=== PATIENT | male | born 1995 | race Caucasian/White ===

== ENCOUNTER 2017-05-03 01:51 | Emergency (ER) | payer SELFPAY ==
[~2017-05-03] VITALS: Ht 182.9 cm; Wt 77.1 kg
--- NOTE | 2017-05-03 01:53 | PHYS DOC ---
Past Medical History Procedural Sedation Proc Sed Indication: Left shoulder dislocation Consent: I have discussed with the patient and/or the patient district sales representative the indication, alternatives, and the possible risks and /or complications of the planned procedure and the anesthesia methods. The patient and/or patient district sales representative appear to understand and agree to proceed. Pre-Sedation Documentation and Exam: As above Airway Assessment: normal. Prior History of Anesthesia Complications: none. ASA Classification: 1 Sedation/ Anesthesia Plan: Propofol Medications Used: see nursing notes. Monitoring and Safety: The patient was placed on a lunchroom monitor and vital signs, pulse oximetry and level of consciousness were continuously evaluated throughout the procedure. The patient was closely monitored until recovery from the medications was complete and the patient had returned to baseline status. Respiratory therapy was on standby at all times during the procedure. (The following sections must be completed) Post-Sedation Vital Signs: Refer to vital sheet Post-Sedation Exam: Alert and oriented 3 in no acute distress Complications: none. Vital Signs Vital Signs Date Time Temp Pulse Resp B/P (MAP) Pulse Ox O2 Delivery O2 Flow Rate FiO2 05/03/17 05:18 100 19 160/93 (115) 100 Room Air 05/03/17 03:28 98.3 Adult General Chief Complaint Chief Complaint: SHOULDER INJURY HPI HPI Patient is a 21 year old who presents with shoulder pain. He states he was asleep and woke up started having pain in his left shoulder. He states he 's never had a dislocation before. 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 He denies any other past medical history. He denies any allergies to medications Review of Systems Review of Systems Constitutional: Denies fever or chills [] Eyes: Denies change in visual acuity, redness, or eye pain [] HENT: Denies nasal congestion or sore throat [] Respiratory: Denies cough or shortness of breath [] Cardiovascular: No additional information not addressed in HPI [] GI: Denies abdominal pain, nausea, vomiting, bloody stools or diarrhea [] : Denies dysuria or hematuria [] Musculoskeletal: Denies back pain or joint pain [] Integument: Denies rash or skin lesions [] Neurologic: Denies headache, focal weakness or sensory changes [] Endocrine: Denies polyuria or polydipsia [] Current Medications Current Medications Current Medications Medications (Trade) Dose Ordered Sig/Nguyen Start Time Stop Time Status Last Admin Dose Admin Fentanyl Citrate (Fentanyl 2ml Vial) 100 mcg STK-MED ONCE 05/03/17 02:11 05/03/17 02:12 DC Propofol 20 ml @ 0 mls/hr 1X ONCE 05/03/17 02:45 05/03/17 02:47 DC 05/03/17 03:50 0 MLS/HR Sodium Chloride 1,000 ml @ 1,000 mls/hr 1X ONCE 05/03/17 05:00 05/03/17 05:45 DC 05/03/17 05:00 1,000 MLS/HR Allergies Allergies Allergies Coded Allergies Type Severity Reaction Last Updated Verified No Known Drug Allergies 05/03/17 No Physical Exam Physical Exam Constitutional: Well developed, well nourished, no acute distress, non-toxic appearance. [] HENT: Normocephalic, atraumatic, bilateral external ears normal, oropharynx moist, no oral exudates, nose normal. [] Eyes: PERRLA, EOMI, conjunctiva normal, no discharge. [] Neck: Normal range of motion, no tenderness, supple, no stridor. [] Cardiovascular:Heart rate regular rhythm, no murmur [] Lungs & Thorax: Bilateral breath sounds clear to auscultation [] Abdomen: Bowel sounds normal, soft, no tenderness, no masses, no pulsatile masses. [] Skin: Warm, dry, no erythema, no rash. [] Back: No tenderness, no CVA tenderness. [] Extremities: Tender palpation over the left shoulder with an obvious deformity over the shoulder no cyanosis, no clubbing, no edema. [] Neurologic: Alert and oriented X 3, normal motor function, normal sensory function, no focal deficits noted. [] Psychologic: Affect normal, judgement normal, mood normal. [] Current Patient Data Vital Signs Vital Signs Date Time Temp Pulse Resp B/P (MAP) Pulse Ox O2 Delivery O2 Flow Rate FiO2 05/03/17 05:18 100 19 160/93 (115) 100 Room Air 05/03/17 03:28 98.3 Lab Values Laboratory Tests Test 05/03/17 02:03 05/03/17 03:15 05/03/17 05:00 White Blood Count 17.6 x10^3/uL (4.0-11.0) H Red Blood Count 5.62 x10^6/uL (4.30-5.70) Hemoglobin 15.4 g/dL (13.0-17.5) Hematocrit 45.2 % (39.0-53.0) Mean Corpuscular Volume 81 fL (79-100) Mean Corpuscular Hemoglobin 27 pg (25-35) Mean Corpuscular Hemoglobin Concent 34 g/dL (31-37) Red Cell Distribution Width 13.6 % (11.5-14.5) Platelet Count 339 x10^3/uL (140-400) Neutrophils (%) (Auto) 81 % (31-73) H Lymphocytes (%) (Auto) 11 % (24-48) L Monocytes (%) (Auto) 6 % (0-9) Eosinophils (%) (Auto) 1 % (0-3) Basophils (%) (Auto) 1 % (0-3) Neutrophils # (Auto) 14.3 x10^3uL (1.8-7.7) H Lymphocytes # (Auto) 1.9 x10^3/uL (1.0-4.8) Monocytes # (Auto) 1.1 x10^3/uL (0.0-1.1) Eosinophils # (Auto) 0.2 x10^3/uL (0.0-0.7) Basophils # (Auto) 0.1 x10^3/uL (0.0-0.2) Platelet Estimate Pending Sodium Level 138 mmol/L (136-145) Potassium Level 3.6 mmol/L (3.5-5.1) Chloride Level 100 mmol/L (98-107) Carbon Dioxide Level 24 mmol/L (21-32) Anion Gap 14 (6-14) Blood Urea Nitrogen 11 mg/dL (8-26) Creatinine 1.1 mg/dL (0.7-1.3) Estimated GFR (Cockcroft-Gault) 86.2 BUN/Creatinine Ratio 10 (6-20) Glucose Level 139 mg/dL (70-99) H Calcium Level 9.9 mg/dL (8.5-10.1) Total Bilirubin 0.3 mg/dL (0.2-1.0) Aspartate Amino Transferase (AST) 27 U/L (15-37) Alanine Aminotransferase (ALT) 69 U/L (16-63) H Alkaline Phosphatase 113 U/L (46-116) Creatine Kinase 293 U/L (39-308) Creatine Kinase MB (Mass) 0.9 ng/mL (0.0-3.6) Creatine Kinase MB Relative Index 0.3 % (0-4) Total Protein 8.5 g/dL (6.4-8.2) H Albumin 4.8 g/dL (3.4-5.0) Albumin/Globulin Ratio 1.3 (1.0-1.7) Lactic Acid Level 3.7 mmol/L (0.4-2.0) H Urine Collection Type Unknown Urine Color Yellow Urine Clarity Clear Urine pH 5.5 Urine Specific [place] 1.020 Urine Protein Negative mg/dL (NEG-TRACE) Urine Glucose (UA) Negative mg/dL (NEG) Urine Ketones (Stick) Trace mg/dL (NEG) Urine Blood Negative (NEG) Urine Nitrite Negative (NEG) Urine Bilirubin Negative (NEG) Urine Urobilinogen Dipstick 0.2 mg/dL (0.2 mg/dL) Urine Leukocyte Esterase Negative (NEG) Urine RBC Occ /HPF (0-2) Urine WBC 1-4 /HPF (0-4) Urine Squamous Epithelial Cells Occ /LPF Urine Bacteria 0 /HPF (0-FEW) Urine Hyaline Casts Moderate /HPF Urine Mucus Marked /LPF Urine Opiates Screen Neg (NEG) Urine Methadone Screen Neg (NEG) Urine Barbiturates Neg (NEG) Urine Phencyclidine Screen Neg (NEG) Urine Amphetamine/Methamphetamine Neg (NEG) Urine Benzodiazepines Screen Neg (NEG) Urine Cocaine Screen Neg (NEG) Urine Cannabinoids Screen Neg (NEG) Urine Ethyl Alcohol Neg (NEG) Laboratory Tests 05/03/17 02:03 Laboratory Tests 05/03/17 02:03 EKG EKG [] Radiology/Procedures Radiology/Procedures 2 views of the left shoulder shows anterior shoulder dislocation, no fractures noted, no pneumothorax noted, as interpreted by me. 2 views a post reduction shows normal alignment, no fractures or bony abnormalities, as interpreted by me. Impressions: Shoulder dislocation Course & Med Decision Making Course & Med Decision Making Pertinent Labs and Imaging studies reviewed. (See chart for details) Not sure why shoulders dislocated. He's either not being honest about his activities or perhaps he fell in all night. Shoulder reduction occurred with conscious sedation using propofol. Patient reduction was successful and I do not appreciate any fractures, patient was placed in a shoulder immobilizer . Neurovascularly he is intact with 2+ radial artery in addition to able flex extend at the wrist, fingers, intact to light touch and motor to radial median and ulnar nerve distributions. He has been watched per protocol, his vitals been stable and he is ambulatory and alert and oriented 3. He is stable for discharge. He is to follow-up with Dr. Otero. He's also instructed to follow- up with Dr. Umanzor for possible seizure. An elevated lactic acid and received 2 L of normal saline. Return precautions given his agreeable to the plan and being discharged in stable condition at this time. Dragon Disclaimer Dragon Disclaimer This electronic medical record was generated, in whole or in part, using a voice recognition dictation system. PROCEDURE Procedure Procedure note for left shoulder dislocation. Conscious sedation was used with propofol 70 mg then 35 mg. Patient was on monitor continuously. PCO2 was monitored. Traction countertraction was used. The second attempt shoulder reduction was successful. The patient was placed in an arm immobilizer. Patient tolerated procedure well. No palpitations noted. Departure Departure Impression: Primary Impression: Shoulder dislocation Disposition: 01 HOME, SELF-CARE Condition: STABLE Referrals: JOSEPH OTERO II, MD, JAMES S MD Patient Instructions: Shoulder Dislocation, Shoulder Immobilizer Additional Instructions: You were seen and I for your shoulder being dislocated. Were not sure how this happened but you might of had a seizure. Your shoulder was placed back into place and your being discharged home with a shoulder immobilizer were holds it in place. You will need to follow-up with Dr. Otero. Please see him within the next 2 days. Please call his office and schedule follow-up appointment. Since weren't sure if he had a seizure or not your being referred to a neurologist. Please call Dr. Umanzor's office for follow-up appointment with him. If you develop numbness, weakness, your fingers in your left arm turn blue or you have any other concerns please return back to emergency department immediately. Problem Qualifiers Primary Impression: Shoulder dislocation Encounter type: initial encounter Laterality: left Qualified Codes: S43.005A - Unspecified dislocation of left shoulder joint, initial encounter DIANNA GARLAND MD May 03, 2017 01:53
[2017-05-03] MEDS ORDERED: fentaNYL PF VIAL 100 MCG/2 ML VIAL ONE (02:11)
[2017-05-03] MEDS: fentaNYL PF VIAL 100 MCG/2 ML VIAL IV PRN ×3 (02:12→03:43)
[2017-05-03 02:37] LABS: BASO # 0.1 x10^3/uL (0.0-0.2); BASO % 1 % (0-3); EOS % 1 % (0-3); HEMATOCRIT 45.2 % (39.0-53.0); HEMOGLOBIN 15.4 g/dL (13.0-17.5); LYMPH # 1.9 x10^3/uL (1.0-4.8); LYMPH % 11 % (24-48); MEAN CORPUSCULAR HEMOGLOBIN 27 pg (25-35); MEAN CORPUSCULAR HGB CONC 34 g/dL (31-37); MEAN CORPUSCULAR VOLUME 81 fL (79-100); MONO % 6 % (0-9); NEUT % 81 % (31-73); PLATELET COUNT 339 x10^3/uL (140-400); RED BLOOD COUNT 5.62 x10^6/uL (4.30-5.70); RED CELL DISTRIBUTION WIDTH 13.6 % (11.5-14.5); WHITE BLOOD COUNT 17.6 x10^3/uL (4.0-11.0)
[2017-05-03] MEDS ORDERED: PROPOFOL 20 ML IV ONE (02:45)
[2017-05-03 02:51] LABS: CALCIUM 9.9 mg/dL (8.5-10.1); CREATININE 1.1 mg/dL (0.7-1.3); GFR 86.2; POTASSIUM 3.6 mmol/L (3.5-5.1)
[2017-05-03 02:57] LABS: ALBUMIN 4.8 g/dL (3.4-5.0); ALBUMIN/GLOBULIN RATIO 1.3 (1.0-1.7); TOTAL BILIRUBIN 0.3 mg/dL (0.2-1.0); TOTAL PROTEIN 8.5 g/dL (6.4-8.2)
[2017-05-03 03:03] LABS: CKMB MASS 0.9 ng/mL (0.0-3.6)
[2017-05-03] MEDS ORDERED: IV NORMAL SALINE 1000ML BAG 1,000 ML IV ONE (05:00)
[2017-05-03 05:08] LABS: BILIRUBIN,URINE NEGATIVE (NEG); GLUCOSE,URINE NEGATIVE (NEG); NITRITE,URINE NEGATIVE (NEG); PH,URINE 5.5; PROTEIN,URINE NEGATIVE (NEG-TRACE); UROBILINOGEN,URINE 0.2 mg/dL (0.2 mg/dL)
[2017-05-03 05:14] LABS: BARBITURATES NEG (NEG); BENZODIAZEPINES NEG (NEG); CANNABINOIDS NEG (NEG); COCAINE NEG (NEG); METHADONE NEG (NEG); OPIATES NEG (NEG); PHENCYCLIDINE NEG (NEG)
[2017-05-03 05:18] VITALS: BP 160/93
[2017-05-03 05:21] LABS: BACTERIA,URINE 0 /HPF (0-FEW); RBC,URINE OCC /HPF (0-2); SQUAMOUS EPITHELIAL CELL,UR OCC /LPF
--- NOTE | 2017-05-03 08:25 | RAD ---
Indication post reduction. AP and Y views of the left shoulder were obtained and are compared to an examination 2 hours earlier. In the interval there has been reduction of previously identified anterior dislocation. No definite fracture seen. IMPRESSION: Interval reduction
--- NOTE | 2017-05-03 08:30 | RAD ---
Indication pain. An AP and a suboptimal Y view were obtained. The examination was targeted to the left shoulder. There is an anterior subcoracoid dislocation. There is a suggested fracture off the head of the humerus likely reflecting a Hill-Sachs deformity. IMPRESSION: Anterior dislocation. Probable fracture humeral head
[2017-05-03 09:24] LABS: % EOS 2 % (0-5)
[2017-05-03 09:25] LABS: PLT ESTIMATE ADEQUATE (ADEQUATE)
== END 2017-05-03 05:40 | disposition home or self-care (01) ==
LOC: ER 01:51
DX: S43.005A Unspecified dislocation of left shoulder joint, initial encounter (principal); F84.0 Autistic disorder; X58.XXXA Exposure to other specified factors, initial encounter; Y93.89 Activity, other specified; Y99.8 Other external cause status; Y92.89 Other specified places as the place of occurrence of the external cause
CPT/HCPCS: 23650; 36415; 73030; 80053; 80305; 80320; 81001; 82553; 83605; 85007; 85027; 96374; 96376; 99285; J2704; J3010; J7030; G0481

== ENCOUNTER 2017-11-29 12:56 | Emergency (ER) | payer OTHER ==
[2017-11-29] MEDS: KETOROLAC 60 MG/2 ML INJ. IM ×2 (13:44)
[2017-11-29] MEDS ORDERED: HYDROmorphone 2 MG/ML VIAL ×2 (14:23)
[2017-11-29] MEDS: HYDROmorphone 2 MG/ML VIAL IV ×2 (14:27)
== END 2017-11-29 15:55 | disposition home or self-care (01) ==
LOC: ER 12:56
DX: S43.014A Anterior dislocation of right humerus, initial encounter (principal); F90.9 Attention-deficit hyperactivity disorder, unspecified type; F84.0 Autistic disorder; X58.XXXA Exposure to other specified factors, initial encounter; Y93.89 Activity, other specified; Y99.8 Other external cause status; Y92.89 Other specified places as the place of occurrence of the external cause
CPT/HCPCS: 23650; 73030; 96372; 96374; 99284-25; J1170; J1885

== ENCOUNTER 2017-12-26 20:59 | Emergency (ER) | payer OTHER ==
[2017-12-26] MEDS: IPRATRPIUM/ALBUTEROL 0.5/2.5MG 3 ML NEBU. NEB (22:41)
[2017-12-26] MEDS: predniSONE 20 MG TABLET PO (23:19)
== END 2017-12-26 23:17 | disposition home or self-care (01) ==
LOC: ER 23:17
DX: J20.9 Acute bronchitis, unspecified (principal); J45.909 Unspecified asthma, uncomplicated; F90.9 Attention-deficit hyperactivity disorder, unspecified type
CPT/HCPCS: 94640; 99283; J7512; J7620

== ENCOUNTER 2018-01-22 10:47 | Inpatient (IN) | payer OTHER ==
[2018-01-22] MEDS: fentaNYL PF VIAL 100 MCG/2 ML VIAL IV ×2 (11:11→11:37)
[2018-01-22 11:21] LABS: ANION GAP 20 (6-14); BLOOD UREA NITROGEN 13 mg/dL (8-26); CALCIUM 9.8 mg/dL (8.5-10.1); CARBON DIOXIDE 20 mmol/L (21-32); CHLORIDE 101 mmol/L (98-107); CREATININE 1.1 mg/dL (0.7-1.3); GFR 85.3; GLUCOSE 127 mg/dL (70-99); POTASSIUM 3.4 mmol/L (3.5-5.1); SODIUM 141 mmol/L (136-145)
[2018-01-22 11:25] LABS: AMMONIA 65 mcmol/L (11-34)
[2018-01-22 11:27] LABS: ALBUMIN 4.4 g/dL (3.4-5.0); ALK PHOS 97 U/L (46-116); ALT (SGPT) 91 U/L (16-63); AST (SGOT) 32 U/L (15-37); DIRECT BILIRUBIN 0.1 mg/dL (0.0-0.2); TOTAL BILIRUBIN 0.6 mg/dL (0.2-1.0); TOTAL PROTEIN 8.4 g/dL (6.4-8.2)
[2018-01-22 11:39] LABS: BASO # 0.1 x10^3/uL (0.0-0.2); BASO % 1 % (0-3); EOS # 1.3 x10^3/uL (0.0-0.7); EOS % 15 % (0-3); HEMATOCRIT 46.4 % (39.0-53.0); HEMOGLOBIN 15.7 g/dL (13.0-17.5); LYMPH # 3.7 x10^3/uL (1.0-4.8); LYMPH % 43 % (24-48); MEAN CORPUSCULAR HEMOGLOBIN 27 pg (25-35); MEAN CORPUSCULAR HGB CONC 34 g/dL (31-37); MEAN CORPUSCULAR VOLUME 81 fL (79-100); MONO % 11 % (0-9); NEUT # 2.5 x10^3uL (1.8-7.7); NEUT % 30 % (31-73); PLATELET COUNT 358 x10^3/uL (140-400); RED BLOOD COUNT 5.75 x10^6/uL (4.30-5.70); RED CELL DISTRIBUTION WIDTH 14.2 % (11.5-14.5); WHITE BLOOD COUNT 8.5 x10^3/uL (4.0-11.0)
[2018-01-22 11:43] LABS: ADD MAN DIFF? YES
[2018-01-22 11:43] LABS: LACTIC ACID 7.7 mmol/L (0.4-2.0)
[2018-01-22] MEDS: IV NORMAL SALINE 1000ML BAG 1,000 ML IV ×2 (11:47→16:15)
[2018-01-22] MEDS: PROPOFOL 20 ML IV (11:50)
[2018-01-22 13:12] LABS: % ATYL 5 % (0-0); % BANDS 1 % (0-9); % BASOS 1 % (0-3); % EOS 14 % (0-5); % LYMPHS 42 % (24-48); % MONOS 9 % (0-10); % SEGS 28 % (35-66); PLT ESTIMATE ADEQUATE (ADEQUATE)
[2018-01-22] MEDS ORDERED: ONDANSETRON PF 4 MG/2 ML VIAL. IV (13:30)
[2018-01-22 14:24] LABS: ACETAMIN < 2 mcg/ml (10-30); SALIC < 2.8 mg/dL (2.8-20.0)
[2018-01-22] MEDS: levETIRAcetam 500 MG TABLET PO ×2 (15:30→21:46)
[2018-01-22] MEDS: levETIRAcetam 750 MG in IV DEXTROSE 5% 100 ML IV (16:13)
[2018-01-22 16:15] LABS: LACTIC ACID 1.3 mmol/L (0.4-2.0)
[2018-01-23] MEDS: traMADol 50 MG TABLET PO (04:56)
[2018-01-23 06:51] LABS: ADD MAN DIFF? NO
[2018-01-23 07:01] LABS: BASO # 0.1 x10^3/uL (0.0-0.2); BASO % 1 % (0-3); EOS # 0.7 x10^3/uL (0.0-0.7); EOS % 7 % (0-3); HEMATOCRIT 42.6 % (39.0-53.0); HEMOGLOBIN 14.6 g/dL (13.0-17.5); LYMPH # 1.8 x10^3/uL (1.0-4.8); LYMPH % 19 % (24-48); MEAN CORPUSCULAR HEMOGLOBIN 28 pg (25-35); MEAN CORPUSCULAR HGB CONC 34 g/dL (31-37); MEAN CORPUSCULAR VOLUME 81 fL (79-100); MONO # 0.9 x10^3/uL (0.0-1.1); MONO % 10 % (0-9); NEUT # 6.1 x10^3uL (1.8-7.7); NEUT % 64 % (31-73); PLATELET COUNT 288 x10^3/uL (140-400); RED BLOOD COUNT 5.29 x10^6/uL (4.30-5.70); WHITE BLOOD COUNT 9.5 x10^3/uL (4.0-11.0)
[2018-01-23 07:10] LABS: ANION GAP 11 (6-14); BLOOD UREA NITROGEN 7 mg/dL (8-26); CALCIUM 9.2 mg/dL (8.5-10.1); CARBON DIOXIDE 26 mmol/L (21-32); CHLORIDE 105 mmol/L (98-107); GFR 95.3; GLUCOSE 94 mg/dL (70-99); POTASSIUM 3.3 mmol/L (3.5-5.1); SODIUM 142 mmol/L (136-145)
[2018-01-23] MEDS: levETIRAcetam 500 MG TABLET PO (08:23)
[2018-01-23] MEDS ORDERED: IBUPROFEN 600 MG TABLET. PO (09:00)
[2018-01-23] MEDS ORDERED: levETIRAcetam 500 MG TABLET PO (09:00)
[2018-01-23 13:12] LABS: AMPHETAMINE/METHAMPHETAMINE NEG (NEG); BARBITURATES NEG (NEG); BENZODIAZEPINES NEG (NEG); CANNABINOIDS NEG (NEG); COCAINE NEG (NEG); ETHANOL, URINE NEG (NEG); METHADONE NEG (NEG); OPIATES NEG (NEG); PHENCYCLIDINE NEG (NEG)
[2018-01-26 09:23] LABS: LEVETIRACETAM 2.4 ug/mL (10.0-40.0)
== END 2018-01-23 16:30 | disposition home or self-care (01) | DRG 101 ==
LOC: ER 10:47 → 4 NORTH 12:30
DX: G40.909 Epilepsy, unspecified, not intractable, without status epilepticus (principal); E87.2 Acidosis; F84.0 Autistic disorder; S43.004A Unspecified dislocation of right shoulder joint, initial encounter; W19.XXXA Unspecified fall, initial encounter; F90.9 Attention-deficit hyperactivity disorder, unspecified type; J45.909 Unspecified asthma, uncomplicated; S00.01XA Abrasion of scalp, initial encounter; S43.005A Unspecified dislocation of left shoulder joint, initial encounter; W22.01XA Walked into wall, initial encounter; Z79.899 Other long term (current) drug therapy; Z91.14 Patient's other noncompliance with medication regimen; Z91.19 Patient's noncompliance with other medical treatment and regimen; Y93.89 Activity, other specified; Y92.89 Other specified places as the place of occurrence of the external cause; Y99.8 Other external cause status
CPT/HCPCS: 23650; 36415; 70450; 72125; 73030; 80048; 80076; 80307; 80329; 82140; 83605; 85007; 85025; 93005; 95816; 96374; 99152; 99285-25; J1953; J2704; J3010; J7030

== ENCOUNTER 2018-02-02 03:06 | Emergency (ER) | payer OTHER ==
[2018-02-02 03:32] LABS: ADD MAN DIFF? NO
[2018-02-02 03:34] LABS: BASO # 0.1 x10^3/uL (0.0-0.2); BASO % 1 % (0-3); EOS # 0.7 x10^3/uL (0.0-0.7); EOS % 8 % (0-3); HEMATOCRIT 44.9 % (39.0-53.0); HEMOGLOBIN 15.4 g/dL (13.0-17.5); LYMPH % 35 % (24-48); MEAN CORPUSCULAR HEMOGLOBIN 27 pg (25-35); MEAN CORPUSCULAR HGB CONC 34 g/dL (31-37); MEAN CORPUSCULAR VOLUME 80 fL (79-100); MONO # 0.8 x10^3/uL (0.0-1.1); MONO % 9 % (0-9); NEUT % 47 % (31-73); PLATELET COUNT 400 x10^3/uL (140-400); RED BLOOD COUNT 5.64 x10^6/uL (4.30-5.70); RED CELL DISTRIBUTION WIDTH 13.4 % (11.5-14.5); WHITE BLOOD COUNT 8.6 x10^3/uL (4.0-11.0)
[2018-02-02] MEDS: levETIRAcetam 1,000 MG in IV DEXTROSE 5% 100 ML IV (03:35)
[2018-02-02 03:42] LABS: ANION GAP 14 (6-14); BLOOD UREA NITROGEN 10 mg/dL (8-26); BUN/CREATININE RATIO 11 (6-20); CALCIUM 9.2 mg/dL (8.5-10.1); CARBON DIOXIDE 23 mmol/L (21-32); CHLORIDE 104 mmol/L (98-107); CREATININE 0.9 mg/dL (0.7-1.3); GFR 107.6; GLUCOSE 112 mg/dL (70-99); POTASSIUM 4.5 mmol/L (3.5-5.1); SODIUM 141 mmol/L (136-145)
[2018-02-02 03:47] LABS: ALBUMIN 4.1 g/dL (3.4-5.0); ALBUMIN/GLOBULIN RATIO 1.1 (1.0-1.7); ALK PHOS 109 U/L (46-116); ALT (SGPT) 78 U/L (16-63); AST (SGOT) 28 U/L (15-37); TOTAL BILIRUBIN 0.4 mg/dL (0.2-1.0); TOTAL PROTEIN 7.9 g/dL (6.4-8.2)
[2018-02-02 04:01] LABS: AMPHETAMINE/METHAMPHETAMINE NEG (NEG); BARBITURATES NEG (NEG); BENZODIAZEPINES NEG (NEG); CANNABINOIDS NEG (NEG); COCAINE NEG (NEG); ETHANOL, URINE NEG (NEG); METHADONE NEG (NEG); OPIATES NEG (NEG); PHENCYCLIDINE NEG (NEG)
[2018-02-02] MEDS: IV NORMAL SALINE 1000ML BAG 1,000 ML IV (04:15)
== END 2018-02-02 05:29 | disposition home or self-care (01) ==
LOC: ER 03:06
DX: R56.9 Unspecified convulsions (principal); E86.0 Dehydration; Z91.14 Patient's other noncompliance with medication regimen; J45.909 Unspecified asthma, uncomplicated; F90.9 Attention-deficit hyperactivity disorder, unspecified type; F84.0 Autistic disorder
CPT/HCPCS: 36415; 80053; 80307; 83735; 85025; 96361; 96365; 99284-25; J1953; J7030

== ENCOUNTER 2018-04-04 11:38 | Emergency (ER) | payer OTHER ==
[2018-04-04] MEDS ORDERED: PROPOFOL 20 ML IV (12:24)
[2018-04-04] MEDS ORDERED: fentaNYL PF VIAL 100 MCG/2 ML VIAL (12:25)
[2018-04-04] MEDS: fentaNYL PF VIAL 100 MCG/2 ML VIAL IV (12:38)
[2018-04-04] MEDS: PROPOFOL 10 MG/ML (20ML) VIAL. IV (12:59)
== END 2018-04-04 13:42 | disposition home or self-care (01) ==
LOC: ER 11:38
DX: S43.015A Anterior dislocation of left humerus, initial encounter (principal); J45.909 Unspecified asthma, uncomplicated; F90.9 Attention-deficit hyperactivity disorder, unspecified type; F84.0 Autistic disorder; X50.1XXA Overexertion from prolonged static or awkward postures, initial encounter; Y93.89 Activity, other specified; Y99.8 Other external cause status; Y92.89 Other specified places as the place of occurrence of the external cause
CPT/HCPCS: 23650; 73030; 96374; 99285-25; J2704; J3010

== ENCOUNTER 2018-08-16 12:15 | Emergency (ER) | payer OTHER ==
[~2018-08-16] VITALS: Ht 180.3 cm; Wt 90.7 kg
[~2018-08-16 12:15] MED LIST: AZIT250T6 PO; IBUP-1060 PO; LEVE500T6 PO; PRED-220 PO; PROAIR HFA8.5 GM INH
[2018-08-16 12:17] VITALS: BP 160/92
--- NOTE | 2018-08-16 12:52 | RAD ---
Two-view left shoulder dated 08/16/2018. Comparison made to 04/04/2018. Clinical data indication: Pain after injury. FINDINGS: 2 views left shoulder show anterior dislocation of the humeral head relative to the glenoid. Possible Hill-Sachs impaction fracture of the superior lateral humeral head. No definite glenoid fracture. Osseous structures otherwise intact. IMPRESSION: Anterior shoulder dislocation. Electronically signed by: Denis Ahmadi MD (08/16/2018 12:49 PM) [id number]
[2018-08-16] MEDS: fentaNYL PF VIAL 100 MCG/2 ML VIAL IV PRN (13:07)
[2018-08-16] MEDS: LIDOCAINE 1% PF 30 ML VIAL. INJ ONE (13:08)
--- NOTE | 2018-08-16 13:38 | PHYS DOC ---
Past Medical History Past Medical History: Asthma, Seizure, Other Additional Past Medical Histor: AUSTISM, ADHD, 2 X BILAT DISLOCATED SHOULDER. Past Surgical History: Other Additional Past Surgical Histo: hernia Alcohol Use: None Drug Use: None Adult General Chief Complaint Chief Complaint: SHOULDER INJURY HPI HPI 22-year-old male presenting to the emergency department today by EMS after slipping down some carpeted and injuring his left shoulder. He has a history of dislocations and believes he might of dislocated it. He has 7 out of 10 shoulder pain that is nonradiating intermittent and without alleviating factors. He denies numbness weakness or tingling. He denies any other injuries head injury neck pain. He denies chest pain or abdominal pain. Review of systems is negative for chest pain shortness of breath abdominal pain fevers chills. All other review of systems is negative unless otherwise noted in history of present illness. ED course: 22-year-old male presenting with left shoulder pain found to have a left shoulder dislocation. Intra-articular lidocaine utilized along with IV fentanyl. Unfortunately the patient, we were unable to reduce the shoulder with intra-articular lidocaine and fentanyl. Procedural sedation equipment set up and ordered. Consent signed. Procedural sedation used during reduction of the left shoulder. No competition's. Left shoulder reduced without complications. X- ray shows shoulder in good position.The patient has been examined and was not found to have an emergency medical condition. The patient was then discharged home in stable condition to follow up with their primary care physician over the next 2-3 days. They were to return if their symptoms worsened or if they were concerned for any reason. They were also instructed to return to the emergency department if they were unable to get the recommended and appropriate follow-up. [id number] discharge instructions and return precautions were given. Patient's questions were answered to their satisfaction. Patient is comfortable with plan. Review of Systems Review of Systems SEE ABOVE. Current Medications Current Medications Current Medications Medications (Trade) Dose Ordered Sig/Nguyen Start Time Stop Time Status Last Admin Dose Admin Fentanyl Citrate (Fentanyl 2ml Vial) 50 mcg PRN Q30MIN PRN 08/16/18 13:00 08/17/18 12:00 08/16/18 13:07 50 MCG Lidocaine HCl (Xylocaine 1% Pf 30ml Vial) 10 ml 1X ONCE 08/16/18 13:00 08/16/18 13:01 DC 08/16/18 13:08 10 ML Propofol 20 ml @ 0 mls/hr 1X ONCE 08/16/18 14:00 08/16/18 14:01 DC Allergies Allergies Allergies Coded Allergies Type Severity Reaction Last Updated Verified No Known Drug Allergies 05/03/17 No Physical Exam Physical Exam SEE ABOVE Constitutional: Well developed, well nourished, no acute distress, non-toxic appearance. HENT: Normocephalic, atraumatic, bilateral external ears normal, oropharynx moist, no oral exudates, nose normal. [] Eyes: PERRLA, EOMI, conjunctiva normal, no discharge. Neck: Normal range of motion, no tenderness, supple, no stridor. [] Cardiovascular:Heart rate regular rhythm, no murmur Lungs & Thorax: Bilateral breath sounds clear to auscultation [] Abdomen: Bowel sounds normal, soft, no tenderness, no masses, no pulsatile masses. [] Skin: Warm, dry, no erythema, no rash. Back: No tenderness, no CVA tenderness. [] Extremities: Left shoulder has deformity consistent with shoulder dislocation. Neurovascularly intact distally. Palpable pulse with 2 second cap refill. Normal sensation of the hand and axillary region. Elbow and wrist are nontender. Neck is nontender. The remainder the extremities are nontender and neurovascularly intact. Neurologic: Alert and oriented X 3, normal motor function, normal sensory function, no focal deficits noted. [] Psychologic: Affect normal, judgement normal, mood normal. [] Current Patient Data Vital Signs Vital Signs Date Time Temp Pulse Resp B/P (MAP) Pulse Ox O2 Delivery O2 Flow Rate FiO2 08/16/18 12:17 97.8 20 160/92 (114) 99 Room Air 97.8 EKG EKG [] Radiology/Procedures Radiology/Procedures [] Course & Med Decision Making Course & Med Decision Making Pertinent Labs and Imaging studies reviewed. (See chart for details) [] Dragon Disclaimer Dragon Disclaimer This electronic medical record was generated, in whole or in part, using a voice recognition dictation system. Departure Departure Impression: Primary Impression: Dislocation of left shoulder joint Disposition: HOME, SELF-CARE Condition: STABLE Referrals: SCOTTY DAY MD (PCP) ALISIA RHODSE MD 7 days Patient Instructions: Shoulder Dislocation Additional Instructions: Thank you for allowing us to participate in your care today. Return to the emergency department you have any new or worsening symptoms, or if you are concerned for any reason. Return to emergency department if you have any new or concerning symptoms including but not limited to fever, chills, nausea, vomiting, intractable pain, any new rashes, chest pain, shortness of air , uncontrolled bleeding, difficulty breathing, and/or vision loss. Follow up with your primary care physician within 3 days. Call your Primary Doctor tomorrow and inform them of your visit today. If you do not have a primary care provider we are happy to provide you with a list of our primary care providers contact information. This condition should be evaluated by your primary care physician and any recommended consulting services for continued management within 2-3 days after discharge. If at any time, you are having difficulty getting into your primary care doctor or a specialist, return to the emergency department. Joint Reduction Procedure Joint Indication: Joint dislocation Consent: Consent was obtained. Procedure: The pre-reduction exam showed distal perfusion and neurologic function to be normal.. The patient was placed in the appropriate position. Anesthesia/pain control fentanyl and propofol. Reduction of the left shoulder was performed by [place]. Post reduction films were obtained and revealed satisfactory reduction. A post-reduction exam revealed distal perfusion and neurologic function to be normal. The affected area was immobilized with shoulder sling. The patient tolerated the procedure well. Complications: none. Procedural Sedation Proc Sed Indication: left shoulder dislocation Consent: I have discussed with the patient and/or the patient manufacturer's service representative the indication, alternatives, and the possible risks and /or complications of the planned procedure and the anesthesia methods. The patient and/or patient manufacturer's service representative appear to understand and agree to proceed. Pre-Sedation Documentation and Exam: see nursing notes Airway Assessment: normal. Prior History of Anesthesia Complications: none. ASA Classification: 2 Sedation/ Anesthesia Plan: propofol Medications Used: see nursing notes. Monitoring and Safety: The patient was placed on a cafeteria monitor and vital signs, pulse oximetry and level of consciousness were continuously evaluated throughout the procedure. The patient was closely monitored until recovery from the medications was complete and the patient had returned to baseline status. Respiratory therapy was on standby at all times during the procedure. (The following sections must be completed) Post-Sedation Vital Signs: nursing notes Post-Sedation Exam: On reexamination the patient has a normal neurologic exam Mental status: Awake oriented and alert x3 Cranial nerves: Extraocular movements intact, eyebrows kaveh bilaterally, smile symmetric, uvula elevation nl, shoulder shrug intact bilaterally, tongue protrusion normal DTRs: 2+ Sensation: equal and normal in all extremities Strength: 5/5 in upper and lower extremities bilaterally Complications: none. Vital Signs Vital Signs Date Time Temp Pulse Resp B/P (MAP) Pulse Ox O2 Delivery O2 Flow Rate FiO2 08/16/18 12:17 97.8 20 160/92 (114) 99 Room Air 97.8 LE FARIAS MD Aug 16, 2018 13:38
[2018-08-16] MEDS ORDERED: PROPOFOL 20 ML IV ONE (14:00)
--- NOTE | 2018-08-16 14:42 | RAD ---
Two-view left shoulder dated 08/16/2018. Comparison made to study dated same day. Clinical data indication: Post shoulder reduction. FINDINGS: 2 views left shoulder show interval reduction of anterior dislocation. Alignment anatomic. Possible small Hill-Sachs impaction fracture of the lateral humeral head. No glenoid fracture identified. IMPRESSION: Interval reduction of anterior dislocation. Electronically signed by: Denis Ahmadi MD (08/16/2018 2:39 PM) [id number]
[2018-08-16] MEDS ORDERED: IV NORMAL SALINE 1000ML BAG 1,000 ML IV ONE (15:30)
== END 2018-08-16 15:01 | disposition home or self-care (01) ==
LOC: ER 12:15
DX: S43.005A Unspecified dislocation of left shoulder joint, initial encounter (principal); J45.909 Unspecified asthma, uncomplicated; W01.0XXA Fall on same level from slipping, tripping and stumbling without subsequent striking against object, initial encounter; Y93.89 Activity, other specified; Y92.89 Other specified places as the place of occurrence of the external cause; Y99.8 Other external cause status
CPT/HCPCS: 23650; 73030; 99285; J3010; 96360

== ENCOUNTER 2018-08-28 23:00 | Emergency (ER) | payer OTHER ==
[~2018-08-28] VITALS: Ht 180.3 cm; Wt 86.2 kg
[2018-08-28 23:26] LABS: BASO # 0.1 x10^3/uL (0.0-0.2); BASO % 1 % (0-3); EOS # 0.5 x10^3/uL (0.0-0.7); EOS % 6 % (0-3); HEMATOCRIT 45.3 % (39.0-53.0); LYMPH # 2.5 x10^3/uL (1.0-4.8); LYMPH % 26 % (24-48); MEAN CORPUSCULAR HEMOGLOBIN 28 pg (25-35); MEAN CORPUSCULAR HGB CONC 35 g/dL (31-37); MEAN CORPUSCULAR VOLUME 80 fL (79-100); MONO # 0.8 x10^3/uL (0.0-1.1); MONO % 9 % (0-9); NEUT # 5.4 x10^3uL (1.8-7.7); NEUT % 58 % (31-73); PLATELET COUNT 421 x10^3/uL (140-400); RED BLOOD COUNT 5.65 x10^6/uL (4.30-5.70); WHITE BLOOD COUNT 9.4 x10^3/uL (4.0-11.0)
[2018-08-28] MEDS ORDERED: fentaNYL PF VIAL 100 MCG/2 ML VIAL IV ONE (23:30)
[2018-08-28] MEDS ORDERED: IV NORMAL SALINE 1000ML BAG 1,000 ML IV ONE (23:30)
[2018-08-28] MEDS ORDERED: ETOMIDATE 20 MG/10 ML VIAL. IV ONE (23:30)
[2018-08-28 23:43] LABS: CALCIUM 9.8 mg/dL (8.5-10.1); GFR 95.3
[2018-08-28 23:48] LABS: ALBUMIN 4.5 g/dL (3.4-5.0); ALBUMIN/GLOBULIN RATIO 1.1 (1.0-1.7); MAGNESIUM 2.6 mg/dL (1.8-2.4); TOTAL BILIRUBIN 0.6 mg/dL (0.2-1.0); TOTAL PROTEIN 8.5 g/dL (6.4-8.2)
[2018-08-29] MEDS ORDERED: ORPH100T PO (01:33)
[2018-08-29] MEDS ORDERED: IBUP200T44 PO (01:33)
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
[2018-08-29 02:30] VITALS: BP 134/77
--- NOTE | 2018-08-29 07:36 | RAD ---
3 views right shoulder 08/28/2018 11:43 PM Indication: pain, possible dislocation Comparison: None Findings: There is an anterior shoulder dislocation. No evidence of fracture is seen. No other acute osseous changes are identified. IMPRESSION: Anterior shoulder dislocation. Postreduction radiographs recommended Electronically signed by: Tarun Hoffman MD (08/29/2018 7:33 AM) [id number]
--- NOTE | 2018-08-29 07:57 | RAD ---
Indication: Status post reduction TECHNIQUE: Single AP view of the right shoulder COMPARISON: 08/28/2018 FINDINGS: Interval reduction of previously seen anterior right shoulder dislocation. No acute fractures seen. Acromioclavicular joint is intact. Visualized right lung is clear. IMPRESSION: Interval reduction of anterior shoulder dislocation. Electronically signed by: Orville Messer DO (08/29/2018 7:54 AM) [facility]
== END 2018-08-29 02:45 | disposition home or self-care (01) ==
LOC: ER 23:00
DX: S43.014A Anterior dislocation of right humerus, initial encounter (principal); R56.9 Unspecified convulsions; J45.909 Unspecified asthma, uncomplicated; F84.0 Autistic disorder; F90.9 Attention-deficit hyperactivity disorder, unspecified type; X58.XXXA Exposure to other specified factors, initial encounter; Y93.89 Activity, other specified; Y92.89 Other specified places as the place of occurrence of the external cause; Y99.8 Other external cause status
CPT/HCPCS: 29240; 36415; 73020; 73030; 80053; 82550; 83605; 83735; 85025; 96374; 96375; 99285; G0480; J3010; J7030

== ENCOUNTER 2018-09-06 17:06 | Emergency (ER) | payer OTHER ==
[~2018-09-06] VITALS: Ht 177.8 cm; Wt 90.7 kg
[~2018-09-06 17:06] MED LIST changes: +IBUP200T44 PO; +ORPH100T PO
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
[2018-09-06 17:30] VITALS: BP 141/87
[2018-09-06] MEDS ORDERED: PROPOFOL 10 MG/ML (20ML) VIAL. IV ONE (17:30)
[2018-09-06] MEDS ORDERED: LEVE100020 PO (17:48)
--- NOTE | 2018-09-06 17:58 | RAD ---
EXAM: Left shoulder, 2 views. HISTORY: Close reduction. COMPARISON: 08/16/2018 FINDINGS: 2 views left shoulder obtained. There is no fracture, dislocation or subluxation. IMPRESSION: No acute osseous finding. Electronically signed by: Sherry Jaquez MD (09/06/2018 5:55 PM) [facility]
[2018-09-06] MEDS ORDERED: levETIRAcetam 1,000 MG in IV DEXTROSE 5% 100ML 100 ML IV SCH (18:00)
[2018-09-06 18:30] VITALS: BP 152/91
== END 2018-09-06 18:30 | disposition home or self-care (01) ==
LOC: ER 17:06
DX: S43.142A Inferior dislocation of left acromioclavicular joint, initial encounter (principal); G40.909 Epilepsy, unspecified, not intractable, without status epilepticus; J45.909 Unspecified asthma, uncomplicated; X58.XXXA Exposure to other specified factors, initial encounter; Y93.89 Activity, other specified; Y92.89 Other specified places as the place of occurrence of the external cause; Y99.8 Other external cause status
CPT/HCPCS: 23650; 36415; 73030; 80177; 96365; 99285; J1953; J2704

== ENCOUNTER 2018-09-20 03:19 | Emergency (ER) | payer OTHER ==
[~2018-09-20] VITALS: Ht 172.7 cm; Wt 90.7 kg
[~2018-09-20 03:19] MED LIST changes: +LEVE100020 PO
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
[2018-09-20 04:17] LABS: BASO # 0.1 x10^3/uL (0.0-0.2); BASO % 1 % (0-3); EOS # 0.5 x10^3/uL (0.0-0.7); EOS % 5 % (0-3); HEMATOCRIT 43.5 % (39.0-53.0); HEMOGLOBIN 15.5 g/dL (13.0-17.5); LYMPH # 1.9 x10^3/uL (1.0-4.8); LYMPH % 18 % (24-48); MEAN CORPUSCULAR HEMOGLOBIN 29 pg (25-35); MEAN CORPUSCULAR HGB CONC 36 g/dL (31-37); MEAN CORPUSCULAR VOLUME 81 fL (79-100); MONO # 0.7 x10^3/uL (0.0-1.1); MONO % 7 % (0-9); NEUT # 7.5 x10^3uL (1.8-7.7); NEUT % 69 % (31-73); PLATELET COUNT 344 x10^3/uL (140-400); RED BLOOD COUNT 5.38 x10^6/uL (4.30-5.70); RED CELL DISTRIBUTION WIDTH 13.6 % (11.5-14.5); WHITE BLOOD COUNT 10.8 x10^3/uL (4.0-11.0)
[2018-09-20 04:35] LABS: CALCIUM 9.9 mg/dL (8.5-10.1); CREATININE 0.9 mg/dL (0.7-1.3); GFR 107.6; POTASSIUM 4.1 mmol/L (3.5-5.1)
[2018-09-20 05:51] VITALS: BP 125/89
== END 2018-09-20 06:15 | disposition home or self-care (01) ==
LOC: ER 03:19
DX: R56.9 Unspecified convulsions (principal); J45.909 Unspecified asthma, uncomplicated; F84.0 Autistic disorder; F90.9 Attention-deficit hyperactivity disorder, unspecified type; F17.210 Nicotine dependence, cigarettes, uncomplicated
CPT/HCPCS: 36415; 80048; 85025; 99284

== ENCOUNTER → 2018-10-02 | Outpatient (CLI) | payer OTHER ==
[2018-09-20 05:51] VITALS: BP 125/89
[~2018-10-02] MED LIST changes: +GADOBUTROL 10 MMOL/10 ML VIAL IV ONE
--- NOTE | 2018-10-02 17:40 | KCIC ---
MRI of the Brain without and with Contrast 10/02/2018 Clinical History: Convulsive epilepsy. The patient seizures started about one year ago. Technique: Unenhanced T1-weighted sagittal and axial and FLAIR, T2-weighted, gradient echo and diffusion-weighted axial images of the brain were obtained. Thin section T2-weighted and FLAIR coronal images through the temporal lobes were obtained. After the intravenous administration of 9 cc of Gadavist, enhanced T1-weighted axial and coronal images of the brain were obtained. Findings: The ventricles and sulci are within normal limits in size and configuration. No area of abnormal signal intensity is seen involving the brain parenchyma. No abnormal area of contrast enhancement is seen. No extra-axial fluid collection is noted. There is no MRI evidence of acute ischemia/infarction. Images through the temporal lobes are within normal limits. Mild to moderate mucosal thickening is seen throughout the paranasal sinuses. Normal flow voids are seen within the major vascular structures surrounding the brain parenchyma. Impression: 1. Negative MRI of the brain. 2. Mild to moderate mucosal thickening is seen throughout the paranasal sinuses. Electronically signed by: Hollis Vanessa MD (10/02/2018 5:37 PM) [id number]
== END | disposition home or self-care (01) ==
LOC: KCIC MRI 12:29
PROVIDERS: ATTEND Psychiatry & Neurology Neurology with Special Qualifications in Child Neurology
DX: G40.309 Generalized idiopathic epilepsy and epileptic syndromes, not intractable, without status epilepticus (principal); J34.89 Other specified disorders of nose and nasal sinuses; J45.909 Unspecified asthma, uncomplicated; Z87.891 Personal history of nicotine dependence
CPT/HCPCS: 70553; A9585

== ENCOUNTER 2018-11-20 08:45 | Emergency (ER) | payer OTHER ==
[~2018-11-20] VITALS: Ht 180.3 cm; Wt 90.7 kg
[~2018-11-20 08:45] MED LIST changes: +ALBU2.5V8 INH; -GADOBUTROL 10 MMOL/10 ML VIAL IV ONE; -PROAIR HFA8.5 GM INH
[2018-11-20] MEDS ORDERED: PROPOFOL 20 ML IV ONE (09:15)
[2018-11-20] MEDS ORDERED: IV NORMAL SALINE 1000ML BAG 1,000 ML IV ONE (09:15)
--- NOTE | 2018-11-20 09:15 | PHYS DOC ---
Past Medical History Past Medical History: Asthma, Seizure, Other Additional Past Medical Histor: AUSTISM, ADHD,MULTIPLE DISLOCATED R SHOULDER. Past Surgical History: Other Additional Past Surgical Histo: hernia Alcohol Use: Occasionally Drug Use: None Adult General Chief Complaint Chief Complaint: SHOULDER INJURY HPI HPI Patient is a 23 year old right handed male who brought in by EMS because of possible right shoulder dislocation. Patient states he woke up prior to arrival to ER with right shoulder pain and unable to move his shoulder is like his previous episodes of shoulder dislocation that usually happen after having a seizure. Patient states he thinks he had a seizure while he was sleeping. Patient states he is on 2 antiseizure medication including phenytoin and doesn' t know the name of the other medication and did not take his medication for at least one week. Patient rated his pain as a mild pain and denies focal neurodeficit and other injuries. Review of Systems Review of Systems Constitutional: Denies fever or chills [] Eyes: Denies change in visual acuity, redness, or eye pain [] HENT: Denies nasal congestion or sore throat [] Respiratory: Denies cough or shortness of breath [] Cardiovascular: No additional information not addressed in HPI [] GI: Denies abdominal pain, nausea, vomiting, bloody stools or diarrhea [] : Denies dysuria or hematuria [] Musculoskeletal: Denies back pain, reports joint pain [] Integument: Denies rash or skin lesions [] Neurologic: Denies headache, focal weakness or sensory changes [] Endocrine: Denies polyuria or polydipsia [] All other systems were reviewed and found to be within normal limits, except as documented in this note. Current Medications Current Medications Current Medications Medications (Trade) Dose Ordered Sig/Nguyen Start Time Stop Time Status Last Admin Dose Admin Fosphenytoin Sodium 1000 mg/ Sodium Chloride 70 ml @ 280 mls/hr 1X ONCE 11/20/18 11:00 11/20/18 11:14 DC 11/20/18 11:00 280 MLS/HR Morphine Sulfate (Morphine Sulfate) 4 mg 1X ONCE 11/20/18 10:15 11/20/18 10:16 DC 11/20/18 10:14 4 MG Ondansetron HCl (Zofran) 4 mg 1X ONCE 11/20/18 10:15 11/20/18 10:16 DC 11/20/18 10:13 4 MG Propofol 20 ml @ 0 mls/hr 1X ONCE 11/20/18 09:15 11/20/18 09:16 DC Sodium Chloride 1,000 ml @ 125 mls/hr 1X ONCE 11/20/18 09:15 11/20/18 17:14 11/20/18 10:12 125 MLS/HR Allergies Allergies Allergies Coded Allergies Type Severity Reaction Last Updated Verified No Known Drug Allergies 05/03/17 No Physical Exam Physical Exam Constitutional: Well nourished, mild distress, non-toxic appearance, poor hygiene. [] HENT: Normocephalic, atraumatic Eyes: PERRLA, EOMI, conjunctiva normal, no discharge. [] Neck: Normal range of motion, no tenderness, supple, no stridor. [] Cardiovascular:Heart rate regular rhythm, no murmur [] Lungs & Thorax: Bilateral breath sounds clear to auscultation [] Skin: Warm, dry, no erythema, no rash. [] Back: No tenderness, no CVA tenderness. [] Extremities: Right upper extremity holding in flexion and internal rotation with good radial pulse and sensation and movement of fingers, right shoulder with limited range of motion matching with shoulder dislocation Neurologic: Alert and oriented X 3, normal motor function, normal sensory function, no focal deficits noted. [] Current Patient Data Vital Signs Vital Signs Date Time Temp Pulse Resp B/P (MAP) Pulse Ox O2 Delivery O2 Flow Rate FiO2 11/20/18 11:10 97 18 116/99 (105) 98 Nasal Cannula 2.0 11/20/18 09:02 98.4 98.4 Lab Values Laboratory Tests Test 11/20/18 10:00 White Blood Count 15.1 x10^3/uL (4.0-11.0) H Red Blood Count 5.79 x10^6/uL (4.30-5.70) H Hemoglobin 16.5 g/dL (13.0-17.5) Hematocrit 46.9 % (39.0-53.0) Mean Corpuscular Volume 81 fL (79-100) Mean Corpuscular Hemoglobin 29 pg (25-35) Mean Corpuscular Hemoglobin Concent 35 g/dL (31-37) Red Cell Distribution Width 14.0 % (11.5-14.5) Platelet Count 313 x10^3/uL (140-400) Neutrophils (%) (Auto) 85 % (31-73) H Lymphocytes (%) (Auto) 8 % (24-48) L Monocytes (%) (Auto) 6 % (0-9) Eosinophils (%) (Auto) 1 % (0-3) Basophils (%) (Auto) 1 % (0-3) Neutrophils # (Auto) 12.8 x10^3uL (1.8-7.7) H Lymphocytes # (Auto) 1.1 x10^3/uL (1.0-4.8) Monocytes # (Auto) 0.8 x10^3/uL (0.0-1.1) Eosinophils # (Auto) 0.2 x10^3/uL (0.0-0.7) Basophils # (Auto) 0.1 x10^3/uL (0.0-0.2) Segmented Neutrophils % 84 % (35-66) H Band Neutrophils % 4 % (0-9) Lymphocytes % 9 % (24-48) L Monocytes % 2 % (0-10) Eosinophils % 1 % (0-5) Platelet Estimate Adequate (ADEQUATE) Sodium Level 137 mmol/L (136-145) Potassium Level 3.4 mmol/L (3.5-5.1) L Chloride Level 101 mmol/L (98-107) Carbon Dioxide Level 28 mmol/L (21-32) Anion Gap 8 (6-14) Blood Urea Nitrogen 11 mg/dL (8-26) Creatinine 1.0 mg/dL (0.7-1.3) Estimated GFR (Cockcroft-Gault) 94.3 BUN/Creatinine Ratio 11 (6-20) Glucose Level 154 mg/dL (70-99) H Calcium Level 9.9 mg/dL (8.5-10.1) Total Bilirubin 0.3 mg/dL (0.2-1.0) Aspartate Amino Transferase (AST) 40 U/L (15-37) H Alanine Aminotransferase (ALT) 111 U/L (16-63) H Alkaline Phosphatase 97 U/L (46-116) Total Protein 8.5 g/dL (6.4-8.2) H Albumin 4.4 g/dL (3.4-5.0) Albumin/Globulin Ratio 1.1 (1.0-1.7) Phenytoin (Dilantin) Level 0.7 mcg/mL (10.0-20.0) L Phenytoin Last Dose Date 11/11/18 Phenytoin Last Dose Time 0000 Laboratory Tests 11/20/18 10:00 Laboratory Tests 11/20/18 10:00 EKG EKG [] Radiology/Procedures Radiology/Procedures [address] [address] IMAGING REPORT Signed PATIENT: GEORGIA VILLA ACCOUNT: [id number] : 1995 LOCATION: ER AGE: 23 SEX: M EXAM STATUS: PRE ER ORD. PHYSICIAN: LITZY POLLARD MD REASON: possible dislocation PROCEDURE: SHOULDER 2+V RIGHT 2 view right shoulder study Clinical indications: Seizure today. Possible shoulder dislocation. FINDINGS: There is anterior medial dislocation of the humeral head with respect to the glenoid fossa. No fracture line is evident. No AC joint separation is seen. No lytic process is evident. IMPRESSION: Dislocation of the glenohumeral joint of the right shoulder. Electronically signed by: Soham Gaspar MD (11/20/2018 9:15 AM) [id number] DICTATED and SIGNED BY: SOHAM GASPAR MD DATE: 11/20/18 09[id number] [place], [place] [id number] IMAGING REPORT Signed PATIENT: GEORGIA VILLA ACCOUNT: [id number] : 1995 LOCATION: ER AGE: 23 SEX: M EXAM STATUS: REG ER ORD. PHYSICIAN: LITZY POLLARD MD REASON: postreduction PROCEDURE: SHOULDER 2+V RIGHT Indication:POST REDUCTION DUE TO FALL S/P RT SHOULDER DISLOCATION TECHNIQUE: 3 views of the right shoulder COMPARISON:Previous x-ray from same day earlier FINDINGS/ impression: Interval reduction of previously seen shoulder dislocation.. No acute fractures seen. Visualized right lung is clear. Electronically signed by: Orville Messer DO (11/20/2018 11:21 AM) [id number] DICTATED and SIGNED BY: ORVILLE MESSER DO DATE: 11/20/18 1119 Course & Med Decision Making Course & Med Decision Making Pertinent Labs and Imaging studies reviewed. (See chart for details) Evaluation of patient in ER showed 23-year-old male patient brought in by EMS because of a dislocation of right shoulder after possible seizure. Patient did not take his seizure medication for more than one week. Shoulder dislocation was reduced with giving 2 dose of 50 mg of propofol . Patient had low level of between and had 1000 mg of Cerebyx IV and instructed to continue his home medication. Patient instructed to follow up with [facility] detox[facility] specialist orthopedic physician. Dragon Disclaimer Dragon Disclaimer This electronic medical record was generated, in whole or in part, using a voice recognition dictation system. RISKS/ALTERNATIVES Risks/Alternatives Risks and alternatives of this type of sedation and procedure discussed with: RISK/ALTERNATIVES: Patient H & P ON CHART H & P H & P on chart and reviewed for co-morbid conditions and appropriate labs. H&P ON CHART: Yes STATUS PREG STATUS ASSESSED: Yes MEDS/ALLERGIES REVIEWED Meds/Allergies Reviewed Medications and Allergies including time and route of recently administered narcotics and sedatives. MEDS/ALLERGIES REVIEWED: Yes ASA RATING ASA RATING: I AIRWAY ASSESSMENT Airway Assessment Airway patency, oral function limitations, presence of caps, crowns, dentures, partials, and ability to extend neck assessed. AIRWAY ASSESSMENT: Yes MALLAMPATI SCORE MALLAMPATI SCORE: I PRE-SEDATION ASSESSMENT PRE-SEDATION ASSESSMENT: Yes Joint Reduction Procedure Joint Indication: Right shoulder dislocation Consent: Consent was obtained. Procedure: The pre-reduction exam showed distal perfusion and neurologic function to be normal.. The patient was placed in the appropriate position. Anesthesia/pain control with propofol 50 mg 2 was given. Reduction of the right shoulder was performed by modified Milch method. Post reduction films were obtained and revealed satisfactory reduction. A post-reduction exam revealed distal perfusion and neurologic function to be normal. The affected area was immobilized with a shoulder immobilizer. The patient tolerated the procedure well. Complications: none. Departure Departure Impression: Primary Impression: Recurrent dislocation, right shoulder Additional Impressions: Seizure disorder Noncompliance Disposition: HOME, SELF-CARE (at 1120) Condition: IMPROVED Referrals: SCOTTY DAY MD (PCP) JOSEPH OTERO II, MD Patient Instructions: Seizure, Adult, Shoulder Dislocation, Shoulder Immobilizer Additional Instructions: Drink plenty of liquids Follow-up with your primary care physician in 2-3 days Return to ER if not getting better Continue home seizure medication Problem Qualifiers LITZY POLLARD MD Nov 20, 2018 09:15
--- NOTE | 2018-11-20 09:19 | RAD ---
2 view right shoulder study Clinical indications: Seizure today. Possible shoulder dislocation. FINDINGS: There is anterior medial dislocation of the humeral head with respect to the glenoid fossa. No fracture line is evident. No AC joint separation is seen. No lytic process is evident. IMPRESSION: Dislocation of the glenohumeral joint of the right shoulder. Electronically signed by: Mohit Gaspar MD (11/20/2018 9:15 AM) [id number]
[2018-11-20 10:10] LABS: BASO # 0.1 x10^3/uL (0.0-0.2); BASO % 1 % (0-3); EOS # 0.2 x10^3/uL (0.0-0.7); EOS % 1 % (0-3); HEMATOCRIT 46.9 % (39.0-53.0); HEMOGLOBIN 16.5 g/dL (13.0-17.5); LYMPH # 1.1 x10^3/uL (1.0-4.8); LYMPH % 8 % (24-48); MEAN CORPUSCULAR HEMOGLOBIN 29 pg (25-35); MEAN CORPUSCULAR HGB CONC 35 g/dL (31-37); MEAN CORPUSCULAR VOLUME 81 fL (79-100); MONO # 0.8 x10^3/uL (0.0-1.1); MONO % 6 % (0-9); NEUT # 12.8 x10^3uL (1.8-7.7); NEUT % 85 % (31-73); PLATELET COUNT 313 x10^3/uL (140-400); RED BLOOD COUNT 5.79 x10^6/uL (4.30-5.70); WHITE BLOOD COUNT 15.1 x10^3/uL (4.0-11.0)
[2018-11-20] MEDS ORDERED: MORPHINE SULFATE 4 MG/ML VIAL. IV ONE (10:15)
[2018-11-20] MEDS ORDERED: ONDANSETRON PF 4 MG/2 ML VIAL. IV ONE (10:15)
[2018-11-20 10:26] LABS: ANION GAP 8 (6-14); BLOOD UREA NITROGEN 11 mg/dL (8-26); BUN/CREATININE RATIO 11 (6-20); CALCIUM 9.9 mg/dL (8.5-10.1); CARBON DIOXIDE 28 mmol/L (21-32); CHLORIDE 101 mmol/L (98-107); GFR 94.3; GLUCOSE 154 mg/dL (70-99); POTASSIUM 3.4 mmol/L (3.5-5.1); SODIUM 137 mmol/L (136-145)
[2018-11-20 10:31] LABS: ALBUMIN 4.4 g/dL (3.4-5.0); ALBUMIN/GLOBULIN RATIO 1.1 (1.0-1.7); ALK PHOS 97 U/L (46-116); ALT (SGPT) 111 U/L (16-63); AST (SGOT) 40 U/L (15-37); PHENY 0.7 mcg/mL (10.0-20.0); TOTAL BILIRUBIN 0.3 mg/dL (0.2-1.0); TOTAL PROTEIN 8.5 g/dL (6.4-8.2)
[2018-11-20 10:43] VITALS: BP_SYST 154; BP_DIAS 157; BP_DIAS 57
[2018-11-20] MEDS ORDERED: FOSPHENYTOIN 1,000 MG in IV NORMAL SALINE 50ML 50 ML IV ONE (11:00)
[2018-11-20 11:03] LABS: % BANDS 4 % (0-9); % EOS 1 % (0-5); % LYMPHS 9 % (24-48); % MONOS 2 % (0-10); % SEGS 84 % (35-66); PLT ESTIMATE ADEQUATE (ADEQUATE)
--- NOTE | 2018-11-20 11:25 | RAD ---
Indication:POST REDUCTION DUE TO FALL S/P RT SHOULDER DISLOCATION TECHNIQUE: 3 views of the right shoulder COMPARISON:Previous x-ray from same day earlier FINDINGS/ impression: Interval reduction of previously seen shoulder dislocation.. No acute fractures seen. Visualized right lung is clear. Electronically signed by: Orville Messer DO (11/20/2018 11:21 AM) [id number]
[2018-11-20 12:40] VITALS: BP 140/84
== END 2018-11-20 12:55 | disposition home or self-care (01) ==
LOC: ER 08:45
DX: M24.411 Recurrent dislocation, right shoulder (principal); G40.909 Epilepsy, unspecified, not intractable, without status epilepticus; Z91.19 Patient's noncompliance with other medical treatment and regimen; J45.909 Unspecified asthma, uncomplicated; W18.39XA Other fall on same level, initial encounter; Y93.89 Activity, other specified; Y92.89 Other specified places as the place of occurrence of the external cause; Y99.8 Other external cause status
CPT/HCPCS: 23650; 36415; 73030; 80053; 80185; 85007; 85025; 96365; 96375; 99285; J2270; J2405; J7030; Q2009; 99284-25

== ENCOUNTER 2019-04-23 00:15 | Emergency (ER) | payer OTHER ==
[~2019-04-23] VITALS: Ht 180.3 cm; Wt 95.3 kg
[2019-04-23] MEDS ORDERED: levETIRAcetam 1,000 MG in IV DEXTROSE 5% 100ML 100 ML IV ONE (01:00)
[2019-04-23] MEDS ORDERED: LIDOCAINE 2% 20 ML VIAL. IJ ONE (01:00)
[2019-04-23] MEDS ORDERED: MORPHINE SULFATE 10 MG/ML VIAL. IV ONE (01:00)
--- NOTE | 2019-04-23 01:32 | PHYS DOC ---
MODERATE SEDATION ASSESSMENT RISKS/ALTERNATIVES Risks/Alternatives Risks and alternatives of this type of sedation and procedure discussed with: RISK/ALTERNATIVES: Patient H & P ON CHART H & P H & P on chart and reviewed for co-morbid conditions and appropriate labs. H&P ON CHART: Yes STATUS PREG STATUS ASSESSED: Yes MEDS/ALLERGIES REVIEWED Meds/Allergies Reviewed Medications and Allergies including time and route of recently administered narcotics and sedatives. MEDS/ALLERGIES REVIEWED: Yes ASA RATING ASA RATING: I AIRWAY ASSESSMENT Airway Assessment Airway patency, oral function limitations, presence of caps, crowns, dentures, partials, and ability to extend neck assessed. AIRWAY ASSESSMENT: Yes MALLAMPATI SCORE MALLAMPATI SCORE: I PRE-SEDATION ASSESSMENT PRE-SEDATION ASSESSMENT: Yes MAXIM MCCARTHY MD Apr 23, 2019 01:32
[2019-04-23] MEDS ORDERED: PROPOFOL 10 MG/ML (20ML) VIAL. IV ONE (02:00)
[2019-04-23 03:53] VITALS: BP 204/108
[2019-04-23] MEDS ORDERED: MORPHINE SULFATE 4 MG/ML VIAL. IV ONE (04:00)
[2019-04-23] MEDS ORDERED: OXYC1TAB15 PO (04:18)
[2019-04-23] MEDS ORDERED: IV NORMAL SALINE 1000ML BAG 1,000 ML IV ONE (04:30)
--- NOTE | 2019-04-23 04:38 | PHYS DOC ---
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 Review of Systems Review of Systems Constitutional: Denies fever or chills [] Eyes: Denies change in visual acuity, redness, or eye pain [] Cardiovascular: No additional information not addressed in HPI [] GI: Denies abdominal pain, nausea, vomiting, bloody stools or diarrhea [] : Denies dysuria or hematuria [] Musculoskeletal: Integument: Denies rash or skin lesions [] Neurologic: Denies headache, focal weakness or sensory changes [] All other systems were reviewed and found to be within normal limits, except as documented in this note. Current Medications Current Medications Current Medications Medications (Trade) Dose Ordered Sig/Nguyen Start Time Stop Time Status Last Admin Dose Admin Levetiracetam 1000 mg/Dextrose 110 ml @ 440 mls/hr 1X ONCE 04/23/19 01:00 04/23/19 01:14 DC 04/23/19 00:48 440 MLS/HR Lidocaine HCl 20 ml 1X ONCE 04/23/19 01:00 04/23/19 01:01 DC Morphine Sulfate (Morphine Sulfate) 4 mg 1X ONCE 04/23/19 04:00 04/23/19 04:02 DC 04/23/19 04:32 4 MG Propofol (Diprivan) 200 mg 1X ONCE 04/23/19 02:00 04/23/19 02:01 DC 04/23/19 04:11 200 MG Sodium Chloride 1,000 ml @ 1,000 mls/hr 1X ONCE 04/23/19 04:30 04/23/19 05:29 Allergies Allergies Allergies Coded Allergies Type Severity Reaction Last Updated Verified No Known Drug Allergies 05/03/17 No Physical Exam Physical Exam Constitutional: Well developed, well nourished, no acute distress, non-toxic appearance. []DISHEVELED HENT: Normocephalic, atraumatic, bilateral external ears normal, oropharynx moist, no oral exudates, nose normal. [] Eyes: PERRLA, EOMI, conjunctiva normal, no discharge. [] Neck: Normal range of motion, no tenderness, supple, no stridor. [] Cardiovascular:TACHY NO DEFINITE MURMRU Lungs & Thorax: Bilateral breath sounds clear to auscultation [] Abdomen: Bowel sounds normal, soft, no tenderness, no masses, no pulsatile masses. [] Skin: Warm, dry, no erythema, no rash. [] Back: No tenderness, no CVA tenderness. [] Extremities: B/L SHOULDER TTP AND REDUCED ROM, DEFORMITY NOTED Neurologic: Alert and oriented X 3, normal motor function, normal sensory function, no focal deficits noted. [] Psychologic: Affect normal, judgement normal, mood normal. [] Current Patient Data Vital Signs Vital Signs Date Time Temp Pulse Resp B/P (MAP) Pulse Ox O2 Delivery O2 Flow Rate FiO2 04/23/19 04:10 122 20 98 04/23/19 03:53 99.0 204/108 2.0 98.5 6.0 2.0 04/23/19 00:45 Room Air EKG EKG [] Radiology/Procedures Radiology/Procedures [] Impressions: XRAY B/L SHOULDER ANTERIOR DISLCOATION REDUCTION SUCCESSFUL ON REPEAT Course & Med Decision Making Course & Med Decision Making Pertinent Labs and Imaging studies reviewed. (See chart for details) []SEDATION NOTE: TIME OUT PERFORMED INFORMED CONSENT OBTAINED TOTLA 352 - 4 AM TOTAL 8 MINUTES SEDATION. TOTAL PROPOFOL 120 MG NO HYPOXIA NO APNEA PT TOLERATED WELL REDUCTION NOTE: REDUCTION OF B/L SHOULDER PERFORMED UNDER CONSCIOUS SEDATION NOTED ABOVE WITH SUCCESSFUL REUCTION SLINGS APPLIED CONFIRMED BY CXR. PT RECEIVED DOSE OF IV KEPPRA NOTED THE TACHYCARDIA PRIOR HEART RATES ALSO IN THE LOW TO MID 120'S ON RECENT PRIOR ER VISITS. LInEKLY PAIN RELATED IT WENT UP WHILE HE WAS HERE (HE HAD TO WAIT AWHILE FOR REDUCTION DUE TO MULTIPLE OTHER CRITICAL PATIENTS) PT FELT MUCH BETTER AFTER THE REDUCTION. IV FLUIDS AND PAIN CONTROL WERE GIVEN. PT IS TAKING PO AND IS WELL APPEARING AND EAGER TO BE D/C HOME PAIN CONTROL RX, F/U WITH ORTHOPEDICS, PT PLANS TO F/U WITH PRIMARY MD AND GO FROM THERE. BP WAS HIGH INITIALLY 160/77. Dragon Disclaimer Dragon Disclaimer This electronic medical record was generated, in whole or in part, using a voice recognition dictation system. Departure Departure Impression: Primary Impression: Pathological dislocation of shoulder joint, bilateral Disposition: 01 HOME, SELF-CARE Condition: STABLE Patient Instructions: Shoulder Dislocation, [id number] Scripts Oxycodone/Apap 5-325 (PERCOCET 5-325 MG TABLET ) 1 Each Tablet 1-2 EACH PO PRN TID PRN for PAIN, #15 TAB pain Prov: MAXIM MCCARTHY MD 04/23/19 MAXIM MCCARTHY MD Apr 23, 2019 04:38
[2019-04-23 04:55] VITALS: BP 149/82
--- NOTE | 2019-04-23 08:09 | RAD ---
EXAM: AP and scapular Y views of the shoulders DATE: 04/23/2019 12:21 AM INDICATION: Shoulder pain, dislocation COMPARISON: No Prior FINDINGS/ IMPRESSION: Bilateral anterior inferior shoulder dislocation is seen. Electronically signed by: Milton Calderon MD (04/23/2019 8:07 AM) [facility]
--- NOTE | 2019-04-23 08:13 | RAD ---
EXAM: 2 views of both shoulders DATE: 04/23/2019 4:03 AM INDICATION: POSTREDUCTION COMPARISON: 04/23/19 FINDINGS/ IMPRESSION: Interval reduction of the bilateral shoulders. Bilateral hill-sachs deformities are suspected. Electronically signed by: Milton Calderon MD (04/23/2019 8:09 AM) [facility]
== END 2019-04-23 05:30 | disposition home or self-care (01) ==
LOC: ER 00:15
DX: M24.312 Pathological dislocation of left shoulder, not elsewhere classified (principal); M24.311 Pathological dislocation of right shoulder, not elsewhere classified; J45.909 Unspecified asthma, uncomplicated; F84.0 Autistic disorder
CPT/HCPCS: 23650; 73030; 96365; 96375; 96376; 99285; J1953; J2270; J2704; J7030; 99284-25

== ENCOUNTER 2021-01-11 13:05 | Emergency (ER) | payer OTHER, MEDICAID ==
[~2021-01-11] VITALS: Ht 180.3 cm; Wt 97.8 kg
[~2021-01-11 13:05] MED LIST changes: +OXYC1TAB15 PO
--- NOTE | 2021-01-11 13:33 | RAD ---
EXAM: Right shoulder, 2 views. HISTORY: Dislocation. COMPARISON: 04/23/2019 FINDINGS: 2 views of the right shoulder obtained. There is an anterior shoulder dislocation. IMPRESSION: Anterior shoulder dislocation. Radiographic follow-up following reduction is recommended to exclude concomitant fracture. Electronically signed by: Sherry Jaquez MD (01/11/2021 1:31 PM) [id number]
[2021-01-11] MEDS ORDERED: PROPOFOL 10 MG/ML (20ML) VIAL. IV ONE ×2 (13:45→13:55)
--- NOTE | 2021-01-11 13:47 | PHYS DOC ---
MODERATE SEDATION ASSESSMENT RISKS/ALTERNATIVES Risks/Alternatives Risks and alternatives of this type of sedation and procedure discussed with: RISK/ALTERNATIVES: Patient H & P ON CHART H & P H & P on chart and reviewed for co-morbid conditions and appropriate labs. H&P ON CHART: Yes STATUS PREG STATUS ASSESSED: Yes MEDS/ALLERGIES REVIEWED Meds/Allergies Reviewed Medications and Allergies including time and route of recently administered narcotics and sedatives. MEDS/ALLERGIES REVIEWED: Yes ASA RATING ASA RATING: I AIRWAY ASSESSMENT Airway Assessment Airway patency, oral function limitations, presence of caps, crowns, dentures, partials, and ability to extend neck assessed. AIRWAY ASSESSMENT: Yes MALLAMPATI SCORE MALLAMPATI SCORE: II PRE-SEDATION ASSESSMENT PRE-SEDATION ASSESSMENT: Yes TREVON FORDE MD Jan 11, 2021 13:47
--- NOTE | 2021-01-11 13:49 | ED.ADGEN ---
Past Medical History Past Medical History: Asthma, Seizure Additional Past Medical Histor: AUTISM, frequent shoulder dislocations Past Surgical History: Other Additional Past Surgical Histo: hernia Smoking Status: Former Smoker Alcohol Use: Sober Drug Use: None General Adult EDM: Chief Complaint: SHOULDER INJURY HPI: HPI: Patient is a 25-year-old male who presents to the emergency room complaining of shoulder dislocation. Patient has a history of this. His last dislocation was about a year ago. He states he was just reaching backwards when this occurred. He has no other complaints. He states pain is dull and constant. Worse with movement. Review of Systems: Review of Systems: Complete ROS is negative unless otherwise documented in HPI Current Medications: Current Medications Medications (Trade) Dose Ordered Sig/Nguyen Start Time Stop Time Status Last Admin Dose Admin Propofol (Diprivan) 200 mg STK-MED ONCE 01/11/21 13:55 01/11/21 13:55 DC Allergies: Allergies: Allergies Coded Allergies Type Severity Reaction Last Updated Verified No Known Drug Allergies 05/03/17 No Physical Exam: PE: General: Awake, alert, NAD. Well Nourished, well hydrated. Cooperative HEENT: Atraumatic, EOMI, PERRL, airway patent, moist oral mucosa Neck: Supple, trachea midline Respiratory: CTA bilaterally, normal effort, no wheezing/crackles CV: RRR, no murmur, cap refill <2 GI: Soft, nondistended, nontender, no masses MSK: Right shoulder deformity suggestive of dislocation Skin: Warm, dry, intact Neuro: A&O x3, speech NL, sensory and motor grossly intact, no focal deficits Psych: Normal affect, normal mood, not suicidal or homicidal Current Patient Data: Vital Signs: Vital Signs Date Time Temp Pulse Resp B/P (MAP) Pulse Ox O2 Delivery O2 Flow Rate FiO2 01/11/21 13:58 98.4 95 13 140/89 2.0 89 23 90 01/11/21 13:05 99 Room Air EKG: EKG: [] Heart Score: C/O Chest Pain: N/A Risk Factors: Risk Factors: DM, Current or recent (<one month) smoker, HTN, HLP, family history of CAD, obesity. Risk Scores: Score 0 - 3: 2.5% MACE over next 6 weeks - Discharge Home Score 4 - 6: 20.3% MACE over next 6 weeks - Admit for Clinical Observation Score 7 - 10: 72.7% MACE over next 6 weeks - Early Invasive Strategies Radiology/Procedures: Radiology/Procedures: [] Course & Med Decision Making: Course & Med Decision Making Pertinent Labs and Imaging studies reviewed. (See chart for details) Patient is 25-year-old male who presents to the emergency room with a dislocated right shoulder. X-ray shows anterior dislocation. Patient was sedated with propofol without difficulty. Patient was reduced without difficulty. Patient's test results and vitals while in the ED were fully reviewed and discussed with the patient. Patient is stable and at this time does not need admission to the hospital. We have discussed strict return precautions and the importance of following up with their Primary Care Physician. Patient stated understanding and was given an opportunity to ask any questions. Patient is in agreement with plan. Dragon Disclaimer: Dragon Disclaimer: This electronic medical record was generated, in whole or in part, using a voice recognition dictation system. PROCEDURE Procedure Joint reduction reduction Performed by: Trevon Chowdary MD Consent: Verbal consent obtained. Risks, benefits, and alternatives were discussed Time out was called immediately prior to start of procedure Pre-procedure: Neurovascularly intact Location: Right shoulder Results: Reduction in anterior dislocation Complication: None Tolerated procedure well, capillary refill normal, full ROM Post procedure: Neurovascularly intact Procedural Sedation Performed by: Trevon Chowdary MD Consent: written consent obainted. Risks, benefits, and alternatives were discussed Time out was called prior to medication adminstration Medication: Propofol Sedation time: 3 minutes Complication: None Patient tolerated procedure well. Observed until back to baseline. Departure Departure Impression: Primary Impression: Shoulder dislocation Disposition: 01 DC HOME SELF CARE/HOMELESS Condition: IMPROVED Referrals: UNKNOWN PCP NAME (PCP) PRO RIDDLE MD Patient Instructions: Shoulder Dislocation TREVON CHOWDARY MD Jan 11, 2021 13:49
[2021-01-11 13:58] VITALS: BP 140/89
--- NOTE | 2021-01-11 14:26 | RAD ---
EXAM: RIGHT SHOULDER 2 VIEWS. HISTORY: Dislocation reduction. COMPARISON: 01/11/2021 1308. FINDINGS: The humeral head is reduced. There appears to be a moderate to large Hill-Sachs deformity. An acute fracture is noted not seen. Acromioclavicular joint spaces and alignment are maintained. IMPRESSION: 1. Reduction of the humeral head. Large chronic Hill-Sachs deformity. Electronically signed by: Ty Mathews MD (01/11/2021 2:23 PM) [facility] [place]
[2021-01-11 15:22] VITALS: BP 124/71
== END 2021-01-11 15:40 | disposition home or self-care (01) ==
LOC: ER 13:05
DX: S43.084A Other dislocation of right shoulder joint, initial encounter (principal); J45.909 Unspecified asthma, uncomplicated; Z87.891 Personal history of nicotine dependence; Z98.890 Other specified postprocedural states; X58.XXXA Exposure to other specified factors, initial encounter; Y93.89 Activity, other specified; Y92.89 Other specified places as the place of occurrence of the external cause; Y99.8 Other external cause status
CPT/HCPCS: 23650; 73030; 99285; J2704

== ENCOUNTER 2021-02-15 10:00 | Emergency (ER) | payer OTHER, MEDICAID ==
[~2021-02-15] VITALS: Ht 177.8 cm; Wt 95.4 kg
--- NOTE | 2021-02-15 10:38 | RAD ---
XR SHOULDER_RIGHT 2+ VIEWS History: Reason: R shoulder pain possible dislocation / Spl. Instructions: / History: Technique: 2 views right shoulder Comparison: January 11, 2021 Findings: Right anterior inferior glenohumeral dislocation. No definite fracture. Soft tissues unremarkable. Impression: 1. Right glenohumeral dislocation. Electronically signed by: Andre Villa DO (02/15/2021 10:36 AM) [facility]
[2021-02-15] MEDS ORDERED: IV NORMAL SALINE 1000ML BAG 1,000 ML IV ONE (10:45)
[2021-02-15] MEDS ORDERED: PROPOFOL 10 MG/ML (20ML) VIAL. IV ONE (10:45)
[2021-02-15] MEDS ORDERED: ONDANSETRON PF 4 MG/2 ML VIAL. IVP ONE (10:45)
[2021-02-15 11:09] VITALS: BP 124/78
--- NOTE | 2021-02-15 11:23 | ED.ADGEN ---
Past Medical History Past Medical History: Asthma, Seizure Additional Past Medical Histor: AUTISM, frequent shoulder dislocations Past Surgical History: Other Additional Past Surgical Histo: hernia Smoking Status: Former Smoker Alcohol Use: Sober Drug Use: None General Adult EDM: Chief Complaint: UPPER EXTREMITY INJURY HPI: HPI: Patient is a 25 year old male who presents emergency department via EMS with complaints of his right shoulder being dislocated. Patient reports he has a history of frequent shoulder dislocations. 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 He denies any trauma or recent injury. He denies any numbness, tingling, or weakness of the affected extremity. He reports decreased range of motion due to dislocation and increased pain with any movement. He currently rates his pain a 5 out of 10 on the pain scale, he denies any alleviating factors the pain is worse with movement. Review of Systems: Review of Systems: Complete ROS is negative unless otherwise noted in HPI. Current Medications: Current Medications Medications (Trade) Dose Ordered Sig/[facility] Start Time Stop Time Status Last Admin Dose Admin Ondansetron HCl (Zofran) 4 mg 1X ONCE 02/15/21 10:45 02/15/21 10:46 DC 02/15/21 11:07 4 MG Propofol (Diprivan) 200 mg 1X ONCE 02/15/21 10:45 02/15/21 10:46 DC 02/15/21 11:08 200 MG Sodium Chloride 1,000 ml @ 1,000 mls/hr 1X ONCE 02/15/21 10:45 02/15/21 11:44 DC 02/15/21 11:08 1,000 MLS/HR Allergies: Allergies: Allergies Coded Allergies Type Severity Reaction Last Updated Verified No Known Drug Allergies 05/03/17 No Physical Exam: PE: See Above Constitutional: Well developed, well nourished, no acute distress, non-toxic appearance. [] HENT: Normocephalic, atraumatic, bilateral external ears normal, nose normal. [] Eyes: PERRLA, EOMI, conjunctiva normal, no discharge. [] Neck: Normal range of motion, no stridor. [] Cardiovascular:Heart rate regular rhythm Lungs & Thorax: Respirations even and unlabored, no retractions, no respiratory distress Skin: Warm, dry, no erythema, no rash. [] Extremities: Right shoulder: Deformity noted, likely dislocation; no cyanosis, ROM limited due to injury, 1+ localized edema, normal sensation, cap refill less than 2 seconds Neurologic: Alert and oriented X 3, normal sensory, no focal deficits noted. [] Psychologic: Affect normal, judgement normal, mood normal. [] Current Patient Data: Vital Signs: Vital Signs Date Time Temp Pulse Resp B/P (MAP) Pulse Ox O2 Delivery O2 Flow Rate FiO2 02/15/21 11:09 98.3 90 16 124/78 4.0 98.3 75 16 4.0 EKG: EKG: [] Heart Score: C/O Chest Pain: No Risk Scores: Score 0 - 3: 2.5% MACE over next 6 weeks - Discharge Home Score 4 - 6: 20.3% MACE over next 6 weeks - Admit for Clinical Observation Score 7 - 10: 72.7% MACE over next 6 weeks - Early Invasive Strategies Radiology/Procedures: Radiology/Procedures: PROCEDURE: SHOULDER 2+V RIGHT XR SHOULDER_RIGHT 2+ VIEWS History: Reason: R shoulder pain possible dislocation / Spl. Instructions: / History: Technique: 2 views right shoulder Comparison: January 11, 2021 Findings: Right anterior inferior glenohumeral dislocation. No definite fracture. Soft tissues unremarkable. Impression: 1. Right glenohumeral dislocation. Electronically signed by: Andre Villa DO (02/15/2021 10:36 AM) [facility][] PLEASE SEE DR. MCIWLLIAMS'S NOTE FOR MODERATE SEDATION AND JOINT REDUCTION PROCEDURE: SHOULDER 2+V RIGHT XR SHOULDER_RIGHT 2+ VIEWS History: Reason: post reduction film / Spl. Instructions: / History: Technique: 2 views right shoulder. Comparison: February 15, 2021. Findings: Interval reduction right glenoid humeral dislocation. Posterior lateral humeral head irregularity, likely related to Hill-Sachs deformity. Impression: 1. Interval reduction right glenohumeral dislocation. 2. Irregularity posterior lateral humeral head, likely related to Hill-Sachs deformity. Course & Med Decision Making: Course & Med Decision Making Pertinent Labs and Imaging studies reviewed. (See chart for details) [] Dragon Disclaimer: Dragon Disclaimer: This electronic medical record was generated, in whole or in part, using a voice recognition dictation system. Departure Departure Impression: Primary Impression: Recurrent dislocation of right shoulder Disposition: HOME / SELF CARE / HOMELESS Condition: IMPROVED Referrals: MARIO WHITEHEAD MD (PCP) PRO RIDDLE MD Patient Instructions: Shoulder Dislocation, [id number] Additional Instructions: TYLENOL OR IBUPROFEN NEEDED FOR PAIN. APPLY ICE TO SORE AREA FOR 10-15 MINUTES TODAY AND THEN NEEDED FOR COMFORT. WEAR THE SHOULDER IMMOBILIZER THAT WAS PLACED IN THE ER UNTIL FOLLOW UP WITH DR. RIDDLE, RECOMMEND FOLLOW UP IN THE NEXT 1-2 DAYS. RETURN TO THE ER IF SYMPTOMS WORSEN OR FEVER DEVELOPS. Splinting Splinting : Location: R SHOULDER Pre-Made Type: velcro (SHOULDER IMMOBILIZER) Pre-Proc Neuro Vasc Exam: normal Post-Proc Neuro Vasc Exam: normal, unchanged from pre-exam Progress NO COMPLICATIONS, PT TOLERATED PROCEDURE WELL. MODERATE SEDATION ASSESSMENT RISKS/ALTERNATIVES Risks/Alternatives Risks and alternatives of this type of sedation and procedure discussed with: RISK/ALTERNATIVES: Patient H & P ON CHART H & P H & P on chart and reviewed for co-morbid conditions and appropriate labs. H&P ON CHART: Yes STATUS PREG STATUS ASSESSED: Yes MEDS/ALLERGIES REVIEWED Meds/Allergies Reviewed Medications and Allergies including time and route of recently administered narcotics and sedatives. MEDS/ALLERGIES REVIEWED: Yes ASA RATING ASA RATING: I AIRWAY ASSESSMENT Airway Assessment Airway patency, oral function limitations, presence of caps, crowns, dentures, partials, and ability to extend neck assessed. AIRWAY ASSESSMENT: Yes MALLAMPATI SCORE MALLAMPATI SCORE: I PRE-SEDATION ASSESSMENT PRE-SEDATION ASSESSMENT: Yes Attending Co-Sign Attending Co-Sign The patient was seen and interviewed as well as examined at the bedside. The chart was reviewed. The case was discussed. Agree with the plan of care. Joint Reduction Procedure Joint Indication: Joint dislocation Consent: Consent was obtained. Procedure: The pre-reduction exam showed distal perfusion and neurologic function to be normal.. The patient was placed in the appropriate position. Patient was sedated with propofol. Reduction of the right shoulder dislocation was performed by external rotation. Post reduction films were obtained and revealed satisfactory reduction. A post-reduction exam revealed distal perfusion and neurologic function to be normal. The affected area was immobilized with shoulder immobilizer. The patient tolerated the procedure well. Complications: none. LOLI ANNA APRN Feb 15, 2021 11:23 BLANCA MCWILLIAMS DO Feb 15, 2021 11:49
--- NOTE | 2021-02-15 11:40 | RAD ---
XR SHOULDER_RIGHT 2+ VIEWS History: Reason: post reduction film / Spl. Instructions: / History: Technique: 2 views right shoulder. Comparison: February 15, 2021. Findings: Interval reduction right glenoid humeral dislocation. Posterior lateral humeral head irregularity, li nicholas related to Hill-Sachs deformity. Impression: 1. Interval reduction right glenohumeral dislocation. 2. Irregularity posterior lateral humeral head, likely related to Hill-Sachs deformity. Electronically signed by: Andre Villa DO (02/15/2021 11:38 AM) [facility]LEY
[2021-02-15 12:14] VITALS: BP 115/76
== END 2021-02-15 13:00 | disposition home or self-care (01) ==
LOC: ER 10:00
DX: M24.411 Recurrent dislocation, right shoulder (principal); J45.909 Unspecified asthma, uncomplicated; Z87.891 Personal history of nicotine dependence; Z98.890 Other specified postprocedural states
CPT/HCPCS: 23650; 73030; 96361; 96374; 99285; J2405; J2704; J7030

== ENCOUNTER 2021-03-29 01:38 | Emergency (ER) | payer OTHER, MEDICAID ==
[~2021-03-29] VITALS: Ht 180.3 cm; Wt 94.6 kg
--- NOTE | 2021-03-29 02:22 | RAD ---
EXAM: 2 Views Left Shoulder DATE: 03/29/2021 1:56 AM INDICATION: Reason: dislocation / Spl. Instructions: / History: COMPARISON: No Prior FINDINGS: There is anterior-inferior dislocation of the left humeral head. AC joint is congruent. Humeral head is not high riding. IMPRESSION: Anterior-inferior left shoulder dislocation. No obvious associated fracture. Electronically signed by: Milton Calderon MD (03/29/2021 2:20 AM) [facility]
[2021-03-29 02:39] VITALS: BP 136/92
--- NOTE | 2021-03-29 02:50 | PHYS DOC ---
MODERATE SEDATION ASSESSMENT RISKS/ALTERNATIVES Risks/Alternatives Risks and alternatives of this type of sedation and procedure discussed with: RISK/ALTERNATIVES: Patient H & P ON CHART H & P H & P on chart and reviewed for co-morbid conditions and appropriate labs. H&P ON CHART: Yes STATUS PREG STATUS ASSESSED: N/A MEDS/ALLERGIES REVIEWED Meds/Allergies Reviewed Medications and Allergies including time and route of recently administered narcotics and sedatives. MEDS/ALLERGIES REVIEWED: Yes ASA RATING ASA RATING: I AIRWAY ASSESSMENT Airway Assessment Airway patency, oral function limitations, presence of caps, crowns, dentures, partials, and ability to extend neck assessed. AIRWAY ASSESSMENT: Yes MALLAMPATI SCORE MALLAMPATI SCORE: I PRE-SEDATION ASSESSMENT PRE-SEDATION ASSESSMENT: Yes TREVON FORDE MD March 29, 2021 02:50
[2021-03-29] MEDS: PROPOFOL 10 MG/ML (20ML) VIAL. IV ONE (02:53)
--- NOTE | 2021-03-29 03:10 | ED.ADGEN ---
Past Medical History Past Medical History: Asthma, Seizure, Other Additional Past Medical Histor: AUTISM, frequent shoulder dislocations Past Surgical History: Other Additional Past Surgical Histo: hernia Smoking Status: Former Smoker Alcohol Use: Sober Drug Use: None General Adult EDM: Chief Complaint: UPPER EXTREMITY PAIN HPI: HPI: Patient is a 25-year-old male with a past medical history of recurrent shoulder dislocations who presents to the emergency room complaining of a right shoulder dislocation. Patient states that he was reaching up into a cabinet when he felt his shoulder come out of place. This is happened to him multiple times in the past. He states he has a dull aching pain in his shoulder since this is occurred. This is similar to last episodes. He states he is able to move and feel his hand without difficulty. Review of Systems: Review of Systems: Complete ROS is negative unless otherwise documented in HPI Current Medications: Current Medications Medications (Trade) Dose Ordered Sig/[facility] Start Time Stop Time Status Last Admin Dose Admin Propofol (Diprivan) 200 mg 1X ONCE 03/29/21 02:00 03/29/21 02:01 DC 03/29/21 02:53 200 MG Allergies: Allergies: Allergies Coded Allergies Type Severity Reaction Last Updated Verified No Known Drug Allergies 05/03/17 No Physical Exam: PE: General: Awake, alert, NAD. Well Nourished, well hydrated. Cooperative HEENT: Atraumatic, EOMI, PERRL, airway patent, moist oral mucosa Neck: Supple, trachea midline Respiratory: CTA bilaterally, normal effort, no wheezing/crackles CV: RRR, no murmur, cap refill <2 GI: Soft, nondistended, nontender, no masses MSK: Right shoulder: Obvious deformity suggestive of dislocation, tenderness on palpation, 2+ radial pulse, intact sensation and distal range of motion Skin: Warm, dry, intact Neuro: A&O x3, speech NL, sensory and motor grossly intact, no focal deficits Psych: Normal affect, normal mood, not suicidal or homicidal Current Patient Data: Vital Signs: Vital Signs Date Time Temp Pulse Resp B/P (MAP) Pulse Ox O2 Delivery O2 Flow Rate FiO2 03/29/21 02:39 98.5 105 25 136/92 110 18 03/29/21 01:40 98 Room Air EKG: EKG: [] Heart Score: C/O Chest Pain: N/A Risk Factors: Risk Factors: DM, Current or recent (<one month) smoker, HTN, HLP, family history of CAD, obesity. Risk Scores: Score 0 - 3: 2.5% MACE over next 6 weeks - Discharge Home Score 4 - 6: 20.3% MACE over next 6 weeks - Admit for Clinical Observation Score 7 - 10: 72.7% MACE over next 6 weeks - Early Invasive Strategies Radiology/Procedures: Radiology/Procedures: [] Course & Med Decision Making: Course & Med Decision Making Pertinent Labs and Imaging studies reviewed. (See chart for details) Patient is a 25-year-old male who presents to the emergency room with a recurrent right shoulder dislocation. X-ray was done and showed shoulder dislocation. Patient was neurologically intact prior to and after reduction. He was moderately sedated with propofol and reduction was done without difficulties. Patient was put in a knee immobilizer. I have encouraged him to follow-up with orthopedic surgery. Patient's test results and vitals while in the ED were fully reviewed and discussed with the patient. Patient is stable and at this time does not need admission to the hospital. We have discussed strict return precautions and the importance of following up with their Primary Care Physician. Patient stated understanding and was given an opportunity to ask any questions. Patient is in agreement with plan. Dragon Disclaimer: Dragon Disclaimer: This electronic medical record was generated, in whole or in part, using a voice recognition dictation system. PROCEDURE Procedure Dislocation reduction Performed by: Trevon Chowdary MD Consent: Verbal consent obtained. Risks, benefits, and alternatives were discussed Time out was called immediately prior to start of procedure Pre-procedure: Neurovascularly intact Location: Right shoulder Technique: Traction countertraction Results: Reduction of dislocation Complication: None Tolerated procedure well, capillary refill normal, full ROM Post procedure: Neurovascularly intact Procedural Sedation Performed by: Trevon Chowdary MD Consent: written consent obainted. Risks, benefits, and alternatives were discussed Time out was called prior to medication adminstration Medication: Propofol Sedation time: 7 minutes Complication: None Patient tolerated procedure well. Observed until back to baseline. Departure Departure Impression: Primary Impression: Recurrent dislocation of right shoulder Disposition: HOME / SELF CARE / HOMELESS Condition: IMPROVED Referrals: MARIO WHITEHEAD MD (PCP) SCOTTY MANCERA DO Patient Instructions: Shoulder Dislocation TREVON CHOWDARY MD March 29, 2021 03:10
--- NOTE | 2021-03-29 03:12 | RAD ---
EXAM: 2 views left shoulder DATE: 03/29/2021 2:40 AM INDICATION: Reason: SHOULDER REDUCTION / Spl. Instructions: / History: . COMPARISON: No Prior FINDINGS/ IMPRESSION: Interval reduction of the left shoulder with anatomic alignment of the left shoulder joint. No defini te acute fracture although deformity of the posterolateral Hill-Sachs deformity. Electronically signed by: Milton Calderon MD (03/29/2021 3:10 AM) [facility]
[2021-03-29 03:52] VITALS: BP 137/79
== END 2021-03-29 04:00 | disposition home or self-care (01) ==
LOC: ER 01:38
DX: M24.411 Recurrent dislocation, right shoulder (principal); J45.909 Unspecified asthma, uncomplicated; Z87.891 Personal history of nicotine dependence
CPT/HCPCS: 23650; 73030; 99285; J2704

== ENCOUNTER 2021-09-22 12:48 | Emergency (ER) | payer OTHER, MEDICAID ==
[~2021-09-22] VITALS: Ht 180.3 cm; Wt 90.9 kg
--- NOTE | 2021-09-22 13:24 | PHYS DOC ---
Past Medical History Past Medical History: Asthma, Seizure, Other Additional Past Medical Histor: AUTISM, frequent shoulder dislocations Past Surgical History: Other Additional Past Surgical Histo: hernia Smoking Status: Former Smoker Alcohol Use: None Drug Use: None General Adult EDM: Chief Complaint: OTHER COMPLAINTS HPI: HPI: Patient is a 25-year-old male that presents today with palpitations. Patient states his symptoms of been going on for about 12 hours, he took his pulse about an hour ago encounter to the 140 bpm he called the nurse line the nurse line instructed him to call 911 and be brought to the hospital. Patient denies chest pain, shortness of breath, swelling in his ankles or feet, diaphoresis, or nausea and vomiting. When asked about caffeine intake patient states he has 1 can of soda a day no energy drinks per his report. Patient denies alcohol and/or drugs. Patient does have a history of seizures and does not take any medications from it he states he was taken off those medications by Dr. Brandy wiseman because he had not had a seizure in a long time. Patient is somewhat unkept he does have a strong body odor he is in a T-shirt and shorts with shoes and no socks, his skin appears dirty he states that he has really dry skin and it gets dirty faster. Patient states he lives at home with his parents. Review of Systems: Review of Systems: Constitutional: Denies fever or chills. [] Eyes: Denies change in visual acuity. [] HENT: Denies nasal congestion or sore throat. [] Respiratory: Denies cough or shortness of breath. [] Cardiovascular: Palpitation, denies chest pain or lower extremity edema GI: Denies abdominal pain, nausea, vomiting, bloody stools or diarrhea. [] : Denies dysuria. [] Musculoskeletal: Denies back pain or joint pain. [] Integument: Denies rash. [] Neurologic: Denies headache, focal weakness or sensory changes. [] Endocrine: Denies polyuria or polydipsia. [] Lymphatic: Denies swollen glands. [] Psychiatric: Denies depression or anxiety. [] Heart Score: C/O Chest Pain: Yes Risk Factors: Risk Factors: DM, Current or recent (<one month) smoker, HTN, HLP, family history of CAD, obesity. Risk Scores: Score 0 - 3: 2.5% MACE over next 6 weeks - Discharge Home Score 4 - 6: 20.3% MACE over next 6 weeks - Admit for Clinical Observation Score 7 - 10: 72.7% MACE over next 6 weeks - Early Invasive Strategies Current Medications: Patient reports no medications at this time Allergies: Allergies: Allergies Coded Allergies Type Severity Reaction Last Updated Verified No Known Drug Allergies 05/03/17 No Physical Exam: PE: Constitutional: Well developed, well nourished, no acute distress, unkept [] HENT: Normocephalic, atraumatic, bilateral external ears normal, oropharynx moist, no oral exudates, nose normal. [] Eyes: PERRLA, EOMI, conjunctiva normal, no discharge. [] Neck: Normal range of motion, no tenderness, supple, no stridor. [] Cardiovascular:Heart rate regular rhythm, no murmur [] Lungs & Thorax: Bilateral breath sounds clear to auscultation [] Abdomen: Bowel sounds normal, soft, no tenderness, no masses, no pulsatile masses. [] Skin: Warm, dry, no erythema, no rash. [] Back: No tenderness, no CVA tenderness. [] Extremities: No tenderness, no cyanosis, no clubbing, ROM intact, no edema. [] Neurologic: Alert and oriented X 3, normal motor function, normal sensory function, no focal deficits noted. [] Psychologic: Affect flat, judgement normal, mood normal. [] Current Patient Data: Labs: Laboratory Tests Test 09/22/21 13:38 09/22/21 15:33 White Blood Count 7.8 x10^3/uL Red Blood Count 6.02 x10^6/uL Hemoglobin 16.8 g/dL Hematocrit 48.5 % Mean Corpuscular Volume 81 fL Mean Corpuscular Hemoglobin 28 pg Mean Corpuscular Hemoglobin Concent 35 g/dL Red Cell Distribution Width 13.8 % Platelet Count 354 x10^3/uL Neutrophils (%) (Auto) 70 % Lymphocytes (%) (Auto) 21 % Monocytes (%) (Auto) 6 % Eosinophils (%) (Auto) 3 % Basophils (%) (Auto) 0 % Neutrophils # (Auto) 5.5 x10^3/uL Lymphocytes # (Auto) 1.6 x10^3/uL Monocytes # (Auto) 0.5 x10^3/uL Eosinophils # (Auto) 0.2 x10^3/uL Basophils # (Auto) 0.0 x10^3/uL Sodium Level 139 mmol/L Potassium Level 3.4 mmol/L Chloride Level 101 mmol/L Carbon Dioxide Level 26 mmol/L Anion Gap 12 Blood Urea Nitrogen 8 mg/dL Creatinine 0.9 mg/dL Estimated GFR (Cockcroft-Gault) 104.6 BUN/Creatinine Ratio 9 Glucose Level 103 mg/dL Calcium Level 9.3 mg/dL Total Bilirubin 0.6 mg/dL Aspartate Amino Transf (AST/SGOT) 38 U/L Alanine Aminotransferase (ALT/SGPT) 97 U/L Alkaline Phosphatase 78 U/L Troponin I High Sensitivity < 4 ng/L Total Protein 8.4 g/dL Albumin 4.5 g/dL Albumin/Globulin Ratio 1.2 Urine Collection Type Unknown Urine Color Yellow Urine Clarity Clear Urine pH 7.5 Urine Specific [place] 1.020 Urine Protein Negative mg/dL Urine Glucose (UA) Negative mg/dL Urine Ketones (Stick) Trace mg/dL Urine Blood Negative Urine Nitrite Negative Urine Bilirubin Negative Urine Urobilinogen Dipstick 1.0 mg/dL Urine Leukocyte Esterase Negative Urine RBC 0 /HPF Urine WBC 0 /HPF Urine Bacteria 0 /HPF Urine Mucus Slight /LPF Urine Opiates Screen Neg Urine Methadone Screen Neg Urine Barbiturates Neg Urine Phencyclidine Screen Neg Urine Amphetamine/Methamphetamine Neg Urine Benzodiazepines Screen Neg Urine Cocaine Screen Neg Urine Cannabinoids Screen Neg Urine Ethyl Alcohol Neg Current Medications Medications (Trade) Dose Ordered Sig/Nguyen Route PRN Reason Start Time Stop Time Status Last Admin Dose Admin Sodium Chloride 1,000 ml @ 999 mls/hr 1X ONCE IV 09/22/21 14:30 09/22/21 15:30 DC 09/22/21 14:25 Vital Signs: Vital Signs Date Time Temp Pulse Resp B/P (MAP) Pulse Ox O2 Delivery O2 Flow Rate FiO2 09/22/21 15:06 94 131/77 (95) 97 Room Air 09/22/21 14:36 98 135/85 (102) 98 Room Air 09/22/21 14:06 104 130/76 (94) 97 Room Air 09/22/21 13:40 108 140/87 (104) 97 Room Air 09/22/21 13:13 98.7 108 18 136/92 (107) 97 Room Air 98.7 Vital Signs Date Time Temp Pulse Resp B/P (MAP) Pulse Ox O2 Delivery O2 Flow Rate FiO2 09/22/21 15:06 94 131/77 (95) 97 Room Air 09/22/21 14:36 98 135/85 (102) 98 Room Air 09/22/21 14:06 104 130/76 (94) 97 Room Air 09/22/21 13:40 108 140/87 (104) 97 Room Air 09/22/21 13:13 98.7 108 18 136/92 (107) 97 Room Air 98.7 EKG: EKG: EKG done at [address] Posadas at 1314 shows sinus tachycardia with T abnormalities in the anterior, lateral, inferior lateral leads abnormal EKG noted with a rate of 104 LA interval of 158 ms with a QT interval of 296. [] Radiology/Procedures: Radiology/Procedures: REASON: Palpitations PROCEDURE: CHEST AP ONLY Single view of the chest. 09/22/2021 1:19 PM Indication: Reason: Palpitations Comparison: None Findings: There is no focal consolidation. There is no pleural effusion or pneumothorax. The cardiomediastinal silhouette and pulmonary vasculature are within normal limits. No acute osseous abnormalities are seen. Impression: No evidence of acute cardiopulmonary process. Electronically signed by: Tarun Hoffman MD (09/22/2021 1:43 PM) [id number][] Course & Med Decision Making: Course & Med Decision Making Pertinent Labs and Imaging studies reviewed. (See chart for details) 1515 reassessment of patient patient in no acute distress playing on his phone IV fluids continue to infuse patient informed of need for your urine sample patient verbalized understanding] 1555 review of labs completed all within normal limits chest x-ray normal, EKG normal. Reviewed previous emergency department visits vital signs are within those limits as well heart rate is normally within the high 90s low 100s in previous visit along with blood pressures in the 130s systolically. We will send patient home to follow-up with his primary care physician in the next 5 to 7 days for further evaluation of this. Will have patient return for increased heart rate that last a considerable amount of time that has chest pain, and shortness of breath associated with it. Patient to avoid stimulants such as energy drinks, caffeine, alcohol, or any other substances that may increase the heart rate. Current blood pressure is 120/86 heart rate of 93 Dragon Disclaimer: Dragon Disclaimer: This electronic medical record was generated, in whole or in part, using a voice recognition dictation system. Departure Departure Impression: Primary Impression: Palpitation Disposition: HOME / SELF CARE / HOMELESS Condition: STABLE Referrals: MARIO WHITEHEAD MD (PCP) Patient Instructions: Palpitations Additional Instructions: Avoid any substances such as caffeine, energy drinks, nicotine, alcohol, or even [id number] medications that may increase your heart rate Follow-up with your primary care physician either by phone tomorrow or on Tuesday for further follow-up of your palpitations Return to the emergency department if you have palpitations associated with chest pain and/or shortness of air. PAUL PEREIRA CLOTH CALENDER Sep 22, 2021 13:24
[2021-09-22 13:46] LABS: BASO % 0 % (0-3); EOS # 0.2 x10^3/uL (0.0-0.7); EOS % 3 % (0-3); HEMATOCRIT 48.5 % (39.0-53.0); HEMOGLOBIN 16.8 g/dL (13.0-17.5); LYMPH # 1.6 x10^3/uL (1.0-4.8); LYMPH % 21 % (24-48); MEAN CORPUSCULAR HEMOGLOBIN 28 pg (25-35); MEAN CORPUSCULAR HGB CONC 35 g/dL (31-37); MEAN CORPUSCULAR VOLUME 81 fL (79-100); MONO # 0.5 x10^3/uL (0.0-1.1); MONO % 6 % (0-9); NEUT # 5.5 x10^3/uL (1.8-7.7); NEUT % 70 % (31-73); PLATELET COUNT 354 x10^3/uL (140-400); RED BLOOD COUNT 6.02 x10^6/uL (4.30-5.70); RED CELL DISTRIBUTION WIDTH 13.8 % (11.5-14.5); WHITE BLOOD COUNT 7.8 x10^3/uL (4.0-11.0)
--- NOTE | 2021-09-22 13:46 | RAD ---
Single view of the chest. 09/22/2021 1:19 PM Indication: Reason: Palpitations Comparison: None Findings: There is no focal consolidation. There is no pleural effusion or pneumothorax. The cardiome diastinal silhouette and pulmonary vasculature are within normal limits. No acute osseous abnormaliti es are seen. Impression: No evidence of acute cardiopulmonary process. Electronically signed by: Tarun Hoffman MD (09/22/2021 1:43 PM) [id number]
[2021-09-22 13:58] LABS: CALCIUM 9.3 mg/dL (8.5-10.1); CREATININE 0.9 mg/dL (0.7-1.3); GFR 104.6; POTASSIUM 3.4 mmol/L (3.5-5.1)
[2021-09-22 14:04] LABS: ALBUMIN 4.5 g/dL (3.4-5.0); ALBUMIN/GLOBULIN RATIO 1.2 (1.0-1.7); TOTAL BILIRUBIN 0.6 mg/dL (0.2-1.0); TOTAL PROTEIN 8.4 g/dL (6.4-8.2)
--- NOTE | 2021-09-22 14:06 | EKG ---
[facility] [address] [place] [address] Test Date: 2021-09-22 Test Time: 13:11:29 Pat Name: GEORGIA VILLA Department: Room: Gender: M Filling Separator: : 1995 Requested By: PAUL PEREIRA Order Number: [id number] Reading MD: Measurements Intervals [place] Rate: 104 P: 2 KS: 158 QRS: 40 QRSD: 82 T: -51 QT: 296 QTc: 395 Interpretive Statements SINUS TACHYCARDIA T ABNORMALITY IN ANTERIOR LEADS LATERAL LEADS INFEROLATERAL LEADS ABNORMAL ECG RI6.02 No previous ECG available for comparison
[2021-09-22] MEDS ORDERED: IV NORMAL SALINE 1000ML BAG 1,000 ML IV ONE (14:30)
[2021-09-22 15:06] VITALS: BP 131/77
[2021-09-22 15:40] LABS: BILIRUBIN,URINE NEGATIVE (NEG); CLARITY,URINE CLEAR; COLOR,URINE YELLOW; NITRITE,URINE NEGATIVE (NEG); PH,URINE 7.5 (<5.0-8.0); PROTEIN,URINE NEGATIVE (NEG-TRACE)
[2021-09-22 15:46] LABS: BARBITURATES NEG (NEG); BENZODIAZEPINES NEG (NEG); CANNABINOIDS NEG (NEG); COCAINE NEG (NEG); METHADONE NEG (NEG); OPIATES NEG (NEG); PHENCYCLIDINE NEG (NEG)
[2021-09-22 15:47] LABS: BACTERIA,URINE 0 /HPF (0-FEW); RBC,URINE 0 /HPF (0-2); WBC,URINE 0 /HPF (0-4)
[2021-09-22 15:50] LABS: AMPHETAMINE/METHAMPHETAMINE NEG (NEG)
== END 2021-09-22 16:24 | disposition home or self-care (01) ==
LOC: ER 12:48
DX: R00.2 Palpitations (principal); J45.909 Unspecified asthma, uncomplicated; Z87.891 Personal history of nicotine dependence
CPT/HCPCS: 36415; 71045; 80053; 80307; 81001; 84484; 85025; 93005; 96360; 96361; 99285; J7030

== ENCOUNTER 2021-12-23 19:18 | Emergency (ER) | payer OTHER, MEDICAID ==
[~2021-12-23] VITALS: Ht 180.3 cm; Wt 86.0 kg
[2021-12-23] MEDS ORDERED: fentaNYL PF VIAL 100 MCG/2 ML VIAL IVP ONE (19:30)
[2021-12-23] MEDS ORDERED: IV NORMAL SALINE 1000ML BAG 1,000 ML IV ONE (19:30)
[2021-12-23] MEDS ORDERED: KETAMINE HCL 500 MG/10 ML VIAL. IV ONE (19:30)
--- NOTE | 2021-12-23 19:42 | PHYS DOC ---
Past Medical History Past Medical History: Asthma, Seizure, Other Additional Past Medical Histor: AUTISM Past Surgical History: No Surgical History Additional Past Surgical Histo: hernia Smoking Status: Never Smoker Alcohol Use: None Drug Use: None Adult General Chief Complaint Chief Complaint: SHOULDER INJURY HPI HPI The patient is a 26-year-old male with a history of recurrent right shoulder dislocations. Sounds as though he has been advised to follow-up with orthopedics for rotator cuff surgery but has not followed up appropriately. He presents for evaluation of an apparent right shoulder dislocation occurring prior to arrival. States he slipped and fell down a couple of stairs, catching himself with his right arm and dislocating the right shoulder. Denies hitting or hurting any other part of his body during the episode. No therapy for symptoms prior to arrival. Endorses normal strength and sensation to his distal right arm and hand. Review of Systems Review of Systems A 12 point review of systems was completed and was negative except where noted in HPI above. Current Medications Current Medications Current Medications Medications (Trade) Dose Ordered Sig/Nguyen Start Time Stop Time Status Last Admin Dose Admin Fentanyl Citrate (Fentanyl 2ml Vial) 75 mcg 1X ONCE 12/23/21 19:30 12/23/21 19:31 DC Ketamine HCl (Ketamine) 160 mg 1X ONCE 12/23/21 19:30 12/23/21 20:42 DC Propofol (Diprivan) 160 mg 1X ONCE 12/23/21 20:45 12/23/21 20:46 DC Sodium Chloride 1,000 ml @ 1,000 mls/hr 1X ONCE 12/23/21 19:30 12/23/21 20:29 DC 12/23/21 19:41 1,000 MLS/HR Allergies Allergies Allergies Coded Allergies Type Severity Reaction Last Updated Verified No Known Drug Allergies 05/03/17 No Physical Exam Physical Exam 26-year-old male appearing nontoxic and in no acute distress. Head is normocephalic and atraumatic. Neck is supple and nontender. Oropharynx is moist. Lungs are clear to auscultation at all stations. There is a normal S1 and S2 without rubs or gallops and capillary refill is appropriate, less than 2 seconds globally. Abdomen is soft, nontender and nondistended. Skin is warm and dry without cyanosis, clubbing or edema. Psychiatrically, the patient demonstrates appropriate mood and affect and is alert. Evaluation of the right upper extremity is remarkable for an apparent closed dislocation to the right shoulder with significant discomfort with any attempt at ranging at the right shoulder. No discomfort with ranging in any other joint of the right upper extremity. Right upper extremity is neurovascularly intact distally with strength 5 out of 5, sensation intact light touch in all nerve distributions, radial pulse 2+, capillary refill less than 2 seconds, hand warm and well- perfused. Current Patient Data Vital Signs Vital Signs Date Time Temp Pulse Resp B/P (MAP) Pulse Ox O2 Delivery O2 Flow Rate FiO2 12/23/21 19:20 98.2 92 20 142/92 (109) 98 Room Air 98.2 EKG EKG [] Radiology/Procedures Radiology/Procedures R shoulder dislocation reduction: Shoulder reduced by me using traction/countertraction method. No complications. Neurovascularly intact post procedure to the right upper extremity. Indication: [R shoulder dislocation] Consent: I have discussed with the patient and/or the patient underwriting service representative the indication, alternatives, and the possible risks and /or complications of the planned procedure and the anesthesia methods. The patient and/or patient underwriting service representative appear to understand and agree to proceed. Pre-Sedation Documentation and Exam: [See physical exam] Airway Assessment: normal. Prior History of Anesthesia Complications: none. ASA Classification: [1] Sedation/ Anesthesia Plan: [Propofol/ketamine] Medications Used: see nursing notes. Monitoring and Safety: The patient was placed on a site monitor and vital signs, pulse oximetry and level of consciousness were continuously evaluated throughout the procedure. The patient was closely monitored until recovery from the medications was complete and the patient had returned to baseline status. Respiratory therapy was on standby at all times during the procedure. (The following sections must be completed) Post-Sedation Vital Signs: [Normal] Post-Sedation Exam: [WNL, AAOx4, NAD. RUE NVI distally.] Complications: none. Exam Date: 12/23/2021 9:08 PM XR SHOULDER_RIGHT 2+ VIEWS Indication: Reason: REDUCTION / Spl. Instructions: / History: . COMPARISON: Radiographs from the same day FINDINGS/ IMPRESSION: Reduction and relocation of previously seen glenohumeral dislocation. Previously seen ossified density is not visualized on the current exam, likely obscured by overlapping osseous structures. No interval new fractures are identified. Electronically signed by: Nikhil Yu MD (12/23/2021 9:17 PM) [email or web address] DICTATED and SIGNED BY: NIKHIL YU MD DATE: 12/23/[id number] 0 Exam Date: 12/23/2021 8:01 PM XR SHOULDER_RIGHT 2+ VIEWS Indication: Reason: dislocation, recurrent / Spl. Instructions: / History: . FINDINGS/ IMPRESSION: Anteromedial dislocation of the humeral head is noted. There is an 8 mm osseous density in the subacromial space, possibly representing a fracture fragment of indeterminate origin. Soft tissues are otherwise within normal limits. Electronically signed by: Nikhil Yu MD (12/23/2021 9:13 PM) [email or web address] DICTATED and SIGNED BY: NIKHIL YU MD DATE: 12/23/[id number] 0 Course & Med Decision Making Course & Med Decision Making We will check plain films, give medication for discomfort and set up for procedural sedation to facilitate close reduction of probable right anterior shoulder dislocation. 2128: Right anterior shoulder dislocation reduced by me under procedural sedation. Patient tolerated the procedure well and there were no complications. Shoulder immobilizer placed. Will refer for close follow-up with orthopedics. Will prescribe ibuprofen. Patient understands that if he has recurrent symptoms, feels worse instead of better or develops any other new symptoms of co ncern that should return to the emergency department right away for reevaluation. All questions are answered. Dragon Disclaimer Dragon Disclaimer This electronic medical record was generated, in whole or in part, using a voice recognition dictation system. Departure Departure Impression: Primary Impression: Recurrent dislocation of right shoulder Disposition: HOME / SELF CARE / HOMELESS Condition: IMPROVED Referrals: MARIO WHITEHEAD MD (PCP) ALKA REYES MD Patient Instructions: Shoulder Dislocation Additional Instructions: Follow-up very closely with your primary care doctor in the office in the next 2 to 4 days for reevaluation of your symptoms and to discussion of next best steps in care. We are referring you to Dr. Reyes of orthopedics as well. Please call to set up an appointment within the next 1 week. Drink plenty of fluids and get plenty of rest. You should not drive until tomorrow due to the sedation we had to perform in order to reduce your shoulder. Take 600mg of ibuprofen (three 200mg pills) every 6 hours as needed for discomfort. Wear the shoulder immobilizer until the orthopedic doctor instructs you that it is appropriate to remove it. Return to the emergency department right away for worsening symptoms of any kind or with any other new symptoms of concern. RITU NAZARIO MD Dec 23, 2021 19:42
[2021-12-23] MEDS ORDERED: PROPOFOL 10 MG/ML (20ML) VIAL. IV ONE ×2 (20:41→20:45)
[2021-12-23 21:11] VITALS: BP 157/75
--- NOTE | 2021-12-23 21:15 | RAD ---
Exam Date: 12/23/2021 8:01 PM XR SHOULDER_RIGHT 2+ VIEWS Indication: Reason: dislocation, recurrent / Spl. Instructions: / History: . FINDINGS/ IMPRESSION: Anteromedial dislocation of the humeral head is noted. There is an 8 mm osseous density in the subac romial space, possibly representing a fracture fragment of indeterminate origin. Soft tissues are ot herwise within normal limits. Electronically signed by: Alfa Yu MD (12/23/2021 9:13 PM) [email or web address]
--- NOTE | 2021-12-23 21:20 | RAD ---
Exam Date: 12/23/2021 9:08 PM XR SHOULDER_RIGHT 2+ VIEWS Indication: Reason: REDUCTION / Spl. Instructions: / History: . COMPARISON: Radiographs from the same day FINDINGS/ IMPRESSION: Reduction and relocation of previously seen glenohumeral dislocation. Previously seen ossified densi ty is not visualized on the current exam, likely obscured by overlapping osseous structures. No inte rval new fractures are identified. Electronically signed by: Alfa Yu MD (12/23/2021 9:17 PM) [email or web address]
[2021-12-23 22:00] VITALS: BP 146/88
[2021-12-23] MEDS ORDERED: IBUPROFEN 400 MG TABLET. PO ONE (22:00)
== END 2021-12-23 22:15 | disposition home or self-care (01) ==
LOC: ER 19:18
DX: M24.411 Recurrent dislocation, right shoulder (principal); J45.909 Unspecified asthma, uncomplicated; W01.0XXA Fall on same level from slipping, tripping and stumbling without subsequent striking against object, initial encounter; Y93.89 Activity, other specified; Y92.89 Other specified places as the place of occurrence of the external cause; Y99.8 Other external cause status
CPT/HCPCS: 23650; 73030; 96360; 99152; 99285; J7030